=== PATIENT | female | born 1955 | race Native Hawaiian/Other Pacific Islander ===

== ENCOUNTER → 2016-08-31 | Outpatient (CLI) | payer OTHER | LOC: GMAB 17:05 | PROVIDERS: ATTEND Family Medicine | DX: Z00.00 Encounter for general adult medical examination without abnormal findings (principal); E53.8 Deficiency of other specified B group vitamins ==

== ENCOUNTER → 2017-04-25 | Outpatient (CLI) | payer OTHER | END | disposition home or self-care (01) | LOC: GMAB 17:58 | PROVIDERS: ATTEND Family Medicine | DX: R42 Dizziness and giddiness (principal); I10 Essential (primary) hypertension; D50.9 Iron deficiency anemia, unspecified; E53.8 Deficiency of other specified B group vitamins ==

== ENCOUNTER → 2017-05-04 | Outpatient (CLI) | payer OTHER | END | disposition home or self-care (01) | LOC: RESP 15:01 | PROVIDERS: ATTEND Family Medicine | DX: R42 Dizziness and giddiness (principal) ==

== ENCOUNTER 2017-06-30 11:33 | Inpatient (IN) | payer OTHER ==
--- NOTE | 2017-06-30 12:43 | RAD ---
EXAM DESCRIPTION: Abdomen 1 View CLINICAL HISTORY: g tube malfunction COMPARISON: None. IMPRESSION: Single AP supine view of the abdomen shows a nonspecific, nonobstructive bowel gas pattern. Moderate amount of formed fecal material in the lower pelvis suggest possible fecal impaction in the rectum. Gastric tube is seen overlying the left upper quadrant of the abdomen. Severe vascular calcifications are identified. Osseous structures are diffusely osteopenic. Electronically signed by: Mal Gaston MD 06/30/2017 12:42 PM [employer]
--- NOTE | 2017-06-30 12:45 | RAD ---
EXAM DESCRIPTION: Chest,1 View CLINICAL HISTORY: g tube malfunction COMPARISON: Chest x-ray June 16, 2017. FINDINGS: Single portable frontal view the thorax. Progressive obscuration of the left hemidiaphragm is present likely reflecting enlarging small to moderate sized pleural effusion with adjacent airspace disease/atelectasis. Visualized portions of the heart and mediastinum are maintained. Contralateral right lung is clear. No acute osseous pathology is demonstrated. Old healed rib fractures. IMPRESSION: Enlarging now small to moderate left-sided pleural effusion effusion with adjacent airspace disease. Electronically signed by: Maurice Chacko MD 06/30/2017 12:44 PM [facility]
--- NOTE | 2017-06-30 12:47 | ED.PDOC ---
History of Present Illness - General Chief Complaint: GI Problem Stated Complaint: g tube malfunction Time Seen by Provider: 06/30/17 12:21 Source: patient Exam Limitations: no limitations - History of Present Illness Initial Comments: Sharon Núñez 62 y/o female with CVA and left sided hemiparesis and g tube insertion complicated by liver puncture during insertion brought by ems because of pain g tube site since yesterday. Timing/Duration: 24 hours Severity: moderate Improving Factors: nothing Worsening Factors: nothing Associated Symptoms: other - heart burn Allergies/Adverse Reactions: Allergies Shellfish Allergy Allergy (Verified 06/30/17 12:03) Azithromycin Adverse Reaction (Intermediate, Verified 06/30/17 21:47) Nausea Levofloxacin [From Levaquin] Adverse Reaction (Verified 06/30/17 21:55) Home Medications: Ambulatory Orders Amlodipine Besylate 5 mg GT DAILY 06/30/17 Atorvastatin Calcium [Lipitor] 40 mg GT DAILY 06/30/17 Carvedilol [Coreg] 12.5 mg GT BID 06/30/17 Losartan Potassium 100 mg GT DAILY 06/30/17 Quetiapine Fumarate [Seroquel] 25 mg GT BID 06/30/17 Review of Systems - Review of Systems Constitutional: States: no symptoms reported EENTM: States: no symptoms reported Respiratory: States: no symptoms reported Cardiology: States: no symptoms reported Gastrointestinal/Abdominal: States: see HPI Genitourinary: States: no symptoms reported Musculoskeletal: States: no symptoms reported Skin: States: no symptoms reported Neurological: States: see HPI Past Medical History (General) - Patient Medical History Hx Stroke: Yes Hx Dementia: No Hx Cardiac Disorders: Yes Hx Hypertension: Yes Hx Diabetes: No Surgical History: other - g tube insertion - Social History Hx Physical Abuse: No Hx Emotional Abuse: No Hx Suspected Abuse: No - Activities of Daily Living Patient Lives Alone: No Shelter/Assisted Living (if applicable):: [facility] Grooming Ability: Maximum Assistance Eating (Feeding) Ability: Total Assistance Toileting Ability: Maximum Assistance Family Medical History - Family History Mother Family History: No Known Living Status: Still Living Hx Family Hypertension: Yes Physical Exam - Physical Exam General Appearance: Agitated, Comfortable, No apparent distress Eye Exam: bilateral normal Ears, Nose, Throat: hearing grossly normal, normal ENT inspection, normal pharynx Neck: full range of motion, supple, normal inspection Respiratory: chest non-tender, lungs clear, normal breath sounds Cardiovascular/Chest: normal peripheral pulses, regular rate, rhythm, no murmur Peripheral Pulses: radial,right: 2+, radial,left: 2+ Gastrointestinal/Abdominal: normal bowel sounds, non tender, soft, no organomegaly, other - flat g tube patent able to flush with normal saline w/o pain Extremity: no pedal edema, no calf tenderness Neurologic: alert, oriented x 3, motor weakness - left side Skin Exam: normal color, warm/dry Progress - Progress Progress: 06/30/17 12:51 Last Vital Signs Temp 100.1 F H 06/30/17 11:35 Pulse 102 H 06/30/17 11:35 Resp 20 06/30/17 11:35 BP 155/80 06/30/17 11:35 Pulse Ox 95 06/30/17 11:35 - Results/Orders Results/Orders: Laboratory Tests 06/30/17 06/30/17 06/30/17 14:42 14:42 14:42 WBC 15.5 H RBC 3.10 L Hgb 10.2 L Hct 29.6 L MCV 95.4 MCH 32.9 H MCHC 34.4 RDW 15.9 H Plt Count 444 H MPV 6.4 L Absolute Neuts (auto) 12.90 H Absolute Lymphs (auto) 1.60 Absolute Monos (auto) 0.90 H Absolute Eos (auto) 0.00 Absolute Basos (auto) 0.20 H Neutrophils % 83.1 H Lymphocytes % 10.0 L Monocytes % 5.6 Eosinophils % 0.3 L Basophils % 1.0 D-Dimer, Quantitative Sodium 127 L Potassium 3.6 Chloride 93 L Carbon Dioxide 25 Anion Gap 12.6 BUN 15 Creatinine 0.58 L BUN/Creatinine Ratio 25.9 H Random Glucose 128 H Serum Osmolality 257.7 L Lactic Acid Calcium 9.7 Total Bilirubin 0.4 AST 26 ALT 30 Alkaline Phosphatase 76 Troponin I < 0.02 Serum Total Protein 7.6 Albumin 3.0 L Globulin 4.6 H Albumin/Globulin Ratio 0.7 L Urine Color Urine Appearance Urine pH Ur Specific [place] Urine Protein Urine Glucose (UA) Urine Ketones Urine Blood Urine Nitrite Urine Bilirubin Urine Urobilinogen Ur Leukocyte Esterase Urine RBC Urine WBC Ur Epithelial Cells Urine Bacteria 06/30/17 06/30/17 06/30/17 15:24 15:25 15:42 WBC RBC Hgb Hct MCV MCH MCHC RDW Plt Count MPV Absolute Neuts (auto) Absolute Lymphs (auto) Absolute Monos (auto) Absolute Eos (auto) Absolute Basos (auto) Neutrophils % Lymphocytes % Monocytes % Eosinophils % Basophils % D-Dimer, Quantitative 552 H* Sodium Potassium Chloride Carbon Dioxide Anion Gap BUN Creatinine BUN/Creatinine Ratio Random Glucose Serum Osmolality Lactic Acid 1.0 Calcium Total Bilirubin AST ALT Alkaline Phosphatase Troponin I Serum Total Protein Albumin Globulin Albumin/Globulin Ratio Urine Color Yellow Urine Appearance Sl cloudy Urine pH 8.5 H Ur Specific [place] 1.010 Urine Protein Negative Urine Glucose (UA) Negative Urine Ketones Negative Urine Blood Trace-intact H Urine Nitrite Negative Urine Bilirubin Negative Urine Urobilinogen 0.2 Ur Leukocyte Esterase Trace H Urine RBC 0-1 Urine WBC 1-3 Ur Epithelial Cells 1-3 Urine Bacteria Rare - EKG/XRAY/CT EKG: Sinus, Tachy, nonspecific ST T wave Chg Comments: HR -107,LAD,LVH XRAY: chest - left pleural effusion with airspace disease CT Ordered: Yes - cta-no pulmonary embolus Departure - Departure Clinical Impression: Hyponatremia with decreased serum osmolality, CVA, old, hemiparesis, Pleural effusion Time of Disposition: 18:21 Disposition: Admit Patient Condition: Fair Home Medications: Ambulatory Orders Amlodipine Besylate 5 mg GT DAILY 06/30/17 Atorvastatin Calcium [Lipitor] 40 mg GT DAILY 06/30/17 Carvedilol [Coreg] 12.5 mg GT BID 06/30/17 Losartan Potassium 100 mg GT DAILY 06/30/17 Quetiapine Fumarate [Seroquel] 25 mg GT BID 06/30/17 Decision To Admit - Decistion To Admit Decision to Admit Reason: Admit from ER Decision to Admit Date: 06/30/17 - D/W Edvin Bush-ANP/Hospitalist Decision to Admit Time: 18:21
--- NOTE | 2017-06-30 13:44 | RAD ---
EXAM DESCRIPTION: KUB CLINICAL HISTORY: g tube malfunction COMPARISON: Same date IMPRESSION: Exam was performed following injection of Gastrografin contrast through the PEG tube. Single AP supine view of the abdomen shows contrast throughout the stomach with gastrostomy tube in good positioning. No extravasation is seen. Nonspecific bowel gas pattern. Possible fecal impaction in the rectum. Electronically signed by: Mal Gaston MD 06/30/2017 1:43 PM [facility]
[2017-06-30] MEDS ORDERED: ALUM & MAG HYDROX-SIMETHICONE 30 ML, LIDOCAINE VISCOUS 2% 15 ML PO ONE ×2 (14:14)
[2017-06-30] MEDS ORDERED: SUCRALFATE 1 GM/10 ML 1 GM UD PO ONE (14:14)
[2017-06-30] MEDS ORDERED: LIDOCAINE HCL 2% (MOUTH-THROAT) 15 ML UD ONE (14:18)
[2017-06-30] MEDS ORDERED: ALUM & MAG HYDROX-SIMETHICONE 30 ML UD ONE (14:18)
[2017-06-30] MEDS ORDERED: MINERAL OIL 133 ML BTTL PR ONE (16:39)
[2017-06-30] MEDS ORDERED: BISACODYL SUPPOSITORY 10 MG PR ONE (16:40)
--- NOTE | 2017-06-30 16:46 | CT ---
EXAM DESCRIPTION: CTA Chest CLINICAL HISTORY: elevated d dimer/bedbound chest pain, shortness of breath COMPARISON: None. TECHNIQUE: Postcontrast CT images of the chest are obtained using pulmonary embolism imaging protocol. Three-D MIP reconstructed images of the arterial vasculature are obtained. Coronal and sagittal reconstructed images of the also provided. This exam was performed according to our departmental dose-optimization program, which includes automated exposure control, adjustment of the mA and/or kV according to patient size and/or use of iterative reconstruction technique . FINDINGS: The heart is enlarged. Moderate calcifications of the coronary arteries are seen. Scattered calcified plaque of the thoracic aorta and great vessels is seen. There is breathing motion artifact limiting evaluation. There is likely mild to moderate stenosis of the proximal left common carotid and left subclavian arteries. No filling defects or emboli are seen in the pulmonary arteries. No pathologically enlarged mediastinal, hilar, or axillary lymphadenopathy seen. Small left pleural effusion is seen. Enhancing compressive atelectasis in the left lower lobe is seen. Trace right pleural effusion and right basilar atelectasis is noted. Lungs are normally aerated. Mild centrilobular emphysematous changes are seen. Fractures of the anterior left fifth through ninth ribs are seen with some evidence of healing. Multiple healed right-sided rib fractures. Fractures are difficult to evaluate because of patient breathing motion artifact. Visualized portion of the upper abdomen shows no acute findings. IMPRESSION: No radiographic evidence of pulmonary embolism. Small left and trace right pleural effusions are seen with left greater than right atelectasis of the lower lobes. Moderate to severe atherosclerotic disease. Electronically signed by: Mal Gaston MD 06/30/2017 4:44 PM [facility]
--- NOTE | 2017-06-30 19:39 | HP ---
SUPERVISING PHYSICIAN: Jarrett Thomas MD CHIEF COMPLAINT: G-Tube malfunction. HISTORY OF PRESENT ILLNESS: Ms. Cantu is a 62 year-old female patient with a history of a recent stroke, right side with left-sided hemiparesis and dysphagia from acute stroke in May 2017. She had a G-tube due to the dysphagia and concerns for aspiration approximately two weeks previously. The patient is followed in the clinic by Dr. Macdonald and was noted that apparently when the G-tube was placed, the liver was in some manner cut. The patient resides at [facility] and has been getting tube feeding and it was noted that over the last few days she has been having increasing pain associated with the feedings and at the G-tube site. She was initially send to the Emergency Room for evaluation of the pain at the G-tube site. In the Emergency Department, imaging studies included abdominal x-ray that showed nonspecific nonobstructive bowel gas pattern with a moderate amount of fecal material within the rectum, possibly a result of the fecal impaction. The gastric tube was seen overlying the left quadrant in the abdomen. This was followed up with a KUB to further evaluate the functionality of the G-tube. Injection of Gastrografin contrast through the G-tube was examined and per radiology interpretation the contrast was noted throughout the stomach with the gastrostomy tube in good position with no extravasation seen. Again, no nonspecific bowel gas pattern was seen with possible fecal impaction in the rectum. Laboratory studies showed she had a significant leukocytosis of 15,500 with a left shift and was anemic with a hemoglobin of 10.2 and hematocrit 29.6. Her D- dimer was also elevated at 552 and her chemistries indicated a hyponatremia with a sodium of 127. Liver functions all showed to be within normal limits. Creatinine was 0.58. Lactic acid was 1.0 and cardiac troponin was less than 0.02. Given the elevation of the D-dimer and the patient's inactivity levels due to the previous stroke, a CT of the chest was completed and per radiology interpretation there was no radiographic evidence of pulmonary embolism. There was noted a small left trace right pleural effusion with a left greater than right atelectasis of the lower lobes. A urinalysis showed just a trace of intact blood with trace leukoesterase with microscopic showing a rare bacteria and 1 to 3 WBCs with 1 to 3 epithelials on a straight cath specimen. The patient was seemed to be stable with vital signs showing a temperature of 100.1 , blood pressure 155/80 with a respiratory rate 20, saturation 95% on room air. Chest x-ray was also completed and again, there were no significant findings for consolidations but there was note of a left-sided pleural effusion with adjacent air space disease. Blood cultures were drawn and she was given mineral oil enema in efforts to relieve the fecal impaction in the Emergency Department. Dr. Murrell, Emergency Room physician, requested the patient be admitted for further evaluation and treatment given the degree of leukocytosis with a left shift and uncertainty etiology along with the hyponatremia. The patient is now admitted to the medical/surgical floor in stable condition. PAST MEDICAL HISTORY: 1. Recent CVA, right side with left-sided hemiparesis in May 2017. 2. Dysphagia requiring G-tube placement. 3. Longstanding history of excessive alcohol usage. 4. Chronic tobacco abuse. 5. Chronic obstructive pulmonary disease. 6. Hypertension. 7. Hyperlipidemia. PAST SURGICAL HISTORY: 1. Sebaceous cyst as a child. 2. Recent G-tube placement 2 weeks prior to admission. CURRENT MEDICATIONS: 1. Seroquel 25 mg b.i.d. 2. Losartan 100 mg daily. 3. Coreg 12.5 mg b.i.d. 4. Lipitor 40 mg daily. 5. Amlodipine 5 mg daily. ALLERGIES: SHELL FISH, AZITHROMYCIN, LEVOFLOXACIN FAMILY HISTORY: Father at age 58 due to atrial fibrillation complications. Mother at age 65 due to heart defect. 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 She is and lives at [facility]. She does have a recent history of excessive alcohol usage, drinking up to a 12-pack a day of beer. She was also a long- term smoker up to a pack a day, having recently quit since May. She denies any illicit drug use. REVIEW OF SYSTEMS: CONSTITUTIONAL: She has had a significant weight loss since her stroke and has left-sided weakness and generalized weakness. She has not noted any fevers but had a fever on arrival. HEENT: Denied any earaches, nasal congestion, sore throat, headaches. RESPIRATORY: Does note she has a cough that is somewhat productive but denies any significant shortness of breath or wheezing. HEART: No reported chest pains, palpitations or syncopal episodes. GASTROINTESTINAL: As noted in history of present illness, pain around the G- tube with administration of bolus feedings. GENITOURINARY: Denies any dysuria, hematuria, polyuria or other urinary symptoms. MUSCULOSKELETAL: Significant muscle wasting since stroke in May with a significant weight loss. NEUROLOGIC: History of previous right-sided stroke with left-sided hemiparesis and dysphagia. PHYSICAL EXAMINATION: VITAL SIGNS: Temperature 101.1 in the Emergency Room on admission with a pulse of 102, blood pressure 155/80, respirations 20, saturation 95% on room air. On admission to the medical/surgical floor, she showed a temperature of 97.8 with heart rate of 96, blood pressure 130/59, respirations 95% on room air. Admission weight was 46.3 kg. GENERAL: The patient us unkempt, somewhat disheveled but very pleasant, appears to be in no acute distress on admission to the medical/surgical floor and is alert and oriented x 3. HEENT: Tympanic membranes clear bilaterally. Oropharynx is pink, somewhat dry but no lesions noted. NECK: Supple with full range of motion, non-tender with no jugular venous distention noted. CHEST: Lung sounds were very clear but diminished towards the basis bilaterally. CARDIOVASCULAR: Regular rate and rhythm without appreciable murmurs, gallops, or rubs. ABDOMEN: Bowel sounds are present with a G-tube in place with no obvious areas of infection or drainage or inflammation. No pain on palpation. EXTREMITIES: There is no cyanosis, clubbing, or edema. NEUROLOGIC: She is alert and oriented x 3. Facial features showed an asymmetry with a left-sided droop which is residual from previous stroke. She has a left hemiparesis with left-sided weakness of both upper and lower extremity. Extraocular movements within normal limits. There was no notable nystagmus. All other cranial nerves were within normal limits as assessed except for facial drooping, dysphagia, noted above. LABORATORY: CBC showed a leukocytosis of 15,500 with hemoglobin of 10.2, hematocrit 29.6, platelet count 444,000. Differential does show a left shift. Coagulation studies only completed was a D-dimer which showed to be elevated at 552. Chemistries showed a low sodium of 127, normal potassium 3.6, BUN 15, creatinine 0.58, glucose 128, serum osmolality low at 257, lactic acid normal at 1.0, calcium normal at 9.7. Liver functions all within normal limits. Troponin less than 0.02, initially with a BMP of 128 and albumin low at 3.0. Urinalysis o a straight cath specimen showed trace of blood intact with a specific gravity of 1.010 with trace of leukoesterase and microcoric revealing rare bacteria with 1 to 3 epithelials, 1 to 3 WBCs and 0 to 1 RBCs. MICROBIOLOGY: Urine cultures pending, flu swab for influenza A and B by PCR was negative for both A and B. Blood cultures are pending. Strep screen pending. Sputum culture pending. RADIOLOGY: Initial abdominal x-ray in the Emergency Room per radiology interpretation showed a moderate amount of foreign fecal material within the lower pelvis suggesting a fecal impaction in the rectum and a gastric tube was seen overlying the left upper quadrant of the abdomen. This was followed up with a chest x-ray and a KUB. Chest x-ray per radiology interpretation of single view chest showed enlarging, now small to moderate, left-sided pleural effusion with adjacent air space disease. KUB per radiology interpretation showed nonspecific bowel gas pattern with possible fecal impaction in the rectum and a single view of the abdomen showed contrast throughout the stomach with a gastrostomy tube in good position with no extravasation seen. EKG showed a sinus tachycardia with nonspecific ST-wave changes but no ST elevation noted with no comparison available. ASSESSMENT: 1. Hyponatremia in a patient taking Seroquel and having free-water tube feedings with concerns for excessive free water and exacerbated by Seroquel. 2. Leukocytosis with low grade fever, uncertain etiology with cultures pending, sputum, urine. 3. Chronic obstructive pulmonary disease in a chronic smoker having recently quit with noted pleural effusions on CT with concerns for possible early developing pneumonia which would be considered hospital-acquired with no evidence currently of any consolidative processes on radiographic studies and sputum cultures pending. Also, cannot completely rule out an aspiration event given that she has a G-tube in place and a dysphagia. 4. Elevated D-dimer with negative CTA for pulmonary embolism, likely related to previous stroke in May and recent surgical process for G-tube placement with patient having no evidence of lower extremity pain or any evidence of a DVT. 5. 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 6. Severe constipation with a fecal impaction within the rectum. 7. Hyperchromic normocytic anemia likely of chronic illness and related to her previous alcohol abuse. 8. History of chronic tobacco abuse, recently stopped smoking in May. 9. History of alcohol abuse, having stopped drinking in May after stroke. PLAN: The patient will be admitted to the hospital fur further treatment and evaluation and treatment of the underlying hyponatremia and further investigation of the leukocytosis. Will also given the degree of the leukocytosis with uncertain etiology with concerns initially for a possible aspiration, tonight we will start with Rocephin 2 grams every 24 hours and reevaluate CBC in the morning along with a repeat chest x-ray. Will await culture results of the sputum and urine to further help target antibiotic therapy. She will be on DVT prophylaxis as per protocol. Will hold off on her tube feedings tonight and free water and await reassessment of her laboratory studies and further clarification of her regular tube feeding scheduled and nutritional supplements. Will go ahead and give her some milk of magnesia. She was given some stool softeners and an enema in the Emergency Room to assist with relieving the fecal impaction in the rectum. I will resume her home medications as noted from medical records and updated verified list with note to decrease the Seroquel to 25 mg daily. I did talk with Dr. Macdonald and he has requested that we taper off the Seroquel as she is no longer in need of this since she has been at [facility]. Again, the Seroquel could be the etiology of her hyponatremia. Will start her on some Protonix given the degree of discomfort with the tube feedings and reported heart burn. Will also follow her cardiac enzymes closely to further rule out any underlying cardiac issues or ischemic process. Will repeat laboratory studies in the morning with a CBC and BMP along with a chest x-ray. Will also go ahead and start her on some breathing treatments, Xopenex, given the degree of chronic obstructive pulmonary disease and previous history of smoking and the noted pleural effusion and atelectasis on the current CT and x-ray findings. Will encourage good pulmonary hygiene with incentive spirometry. Will anticipate length of stay to be at two to three days until clinically stable. Will continue to monitor and treat appropriately. #[id number] [facility]
[2017-06-30] MEDS ORDERED: ONDANSETRON INJ 4 MG/2 ML VIAL IV PRN (20:20)
[2017-06-30] MEDS ORDERED: SODIUM CHL 0.9% 50ML MIN-BAG+ 0 ML IVPB ONE (21:20)
[2017-06-30] MEDS ORDERED: SODIUM CHL 0.9% 100ML MINI-BAG 0 ML IVPB ONE (21:21)
[2017-06-30] MEDS ORDERED: PANTOPRAZOLE SODIUM IV 40 MG VIAL IV SCH (21:30)
[2017-06-30] MEDS: IV SET AND CAP CHANGE INJ INJ SCH (21:30)
[2017-06-30] MEDS ORDERED: cefTRIAXone SODIUM 2 GM in SODIUM CHL 0.9% 100ML MINI-BAG 100 ML IVPB SCH (21:30)
[2017-06-30] MEDS: SODIUM CHLORIDE 0.9% (FLUSH) 10 ML SYG IV PRN (21:31)
[2017-06-30] MEDS: KCL 20 MEQ/NS 1,000 ML IVS PRN (21:42)
[2017-06-30] MEDS ORDERED: levoFLOXacin 500MG IV 500 MG in PREMIX BAG 1 BAG IVPB SCH (22:00)
[2017-06-30] MEDS: CARVEDILOL 12.5 MG TAB GT SCH (22:11)
--- NOTE | 2017-06-30 23:07 | PCM.CORE ---
Physician DVT/VTE - Nurse DVT Assessment & Total Each Risk Factor Represents 5 Points: Stroke < 1 month Each Risk Factor Represents 2 Points: Age 60-74 Each Risk Factor Represents 1 Point: Medical PT at Bed Rest, Hx of smoking past year Each Risk Factor is 1 Point: Serious Lung disease (pnemonia <1month, COPD, emphysema,etc) DVT Assessment Score: 10 - 5 or more Very High Risk Treatments: Early Ambulation *, Sequential Compression Device Pharmacological: Enoxaparin 40mg SQ Daily
[2017-06-30] MEDS ORDERED: SODIUM CHL 0.9% 100ML MINI-BAG 100 ML IVPB ONE (23:19)
[2017-06-30] MEDS ORDERED: AMPICILLIN & SULBACTAM SODIUM 1.5 GM VIAL ONE (23:19)
[2017-06-30] MEDS ORDERED: SODIUM CHL 0.9% 50ML MIN-BAG+ 50 ML IVPB ONE (23:20)
[2017-06-30] MEDS ORDERED: ENOXAPARIN SODIUM 40 MG/0.4 ML SYG SUBCU SCH (23:30)
[2017-06-30] MEDS: AMPICILLIN & SULBACTAM SODIUM 1.5 GM in SODIUM CHL 0.9% 50ML MIN-BAG+ 50 ML IVPB SCH (23:36)
[2017-07-01] MEDS: LEVALBUTEROL NEBS 1.25 MG/3 ML VIAL NEB SCH ×3 (00:14→16:23)
[2017-07-01] MEDS: ACETAMINOPHEN 325 MG TAB PO PRN ×2 (04:02→23:56)
[2017-07-01] MEDS ORDERED: SODIUM CHL 0.9% 50ML MIN-BAG+ 50 ML IVPB ONE ×4 (05:27→19:34)
[2017-07-01] MEDS ORDERED: AMPICILLIN & SULBACTAM SODIUM 1.5 GM VIAL ONE ×4 (05:27→19:33)
[2017-07-01] MEDS: AMPICILLIN & SULBACTAM SODIUM 1.5 GM in SODIUM CHL 0.9% 50ML MIN-BAG+ 50 ML IVPB SCH ×4 (06:08→23:55)
--- NOTE | 2017-07-01 07:30 | RAD ---
Procedure: XR CHEST 1 VIEW Exam Date: 07/01/2017 Ordering Provider: Edvin Herndon NP Clinical Indication: leukocytosis Comparison: 06/30/2017 Findings: Cardiac mediastinal silhouette is stable. Aortic calcification. Focal lung consolidation: Left basilar atelectasis and/or infiltrate. Right basilar subsegmental atelectasis. Pleural effusion: Small left pleural effusion. Pneumothorax: None Bones and soft tissues: Nonacute Impression: 1. Left basilar atelectasis and/or infiltrate with small left pleural effusion. Electronically signed by: Bertrand Solis MD 07/01/2017 7:28 AM [facility]
[2017-07-01] MEDS ORDERED: ATORVASTATIN 20 MG TAB PO ONE ×2 (07:52→19:34)
[2017-07-01] MEDS ORDERED: amLODIPine BESYLATE 5 MG TAB ONE (07:54)
[2017-07-01] MEDS ORDERED: CARVEDILOL 12.5 MG TAB ONE (07:54)
[2017-07-01] MEDS ORDERED: LOSARTAN POTASSIUM 100 MG TAB ONE (07:54)
[2017-07-01] MEDS: amLODIPine BESYLATE 5 MG TAB GT SCH (09:15)
[2017-07-01] MEDS: QUEtiapine FUMARATE 25 MG TAB GT SCH (09:15)
[2017-07-01] MEDS: LOSARTAN POTASSIUM 100 MG TAB NG SCH (09:15)
[2017-07-01] MEDS: CARVEDILOL 12.5 MG TAB GT SCH ×2 (09:15→20:39)
[2017-07-01] MEDS: KCL 20 MEQ/NS 1,000 ML IVS PRN (12:57)
--- NOTE | 2017-07-01 17:53 | PN ---
DATE: 07/01/17 SUPERVISING PHYSICIAN: Jarrett Thomas M.D. SUBJECTIVE: Ms. Cantu is a 62 year-old white female. She is lying in bed awake, alert and oriented, conversational. Her speech is somewhat slurred but only minimally. She denies any shortness of breath, abdominal pain, chest pain , dizziness. She states that she can stand up with assistance and walk with assistance. She, however, cannot move her left arm. She denies any problems at this present time. She was admitted to the hospital yesterday from the Emergency Room for hyponatremia possibly secondary to her Seroquel and tube feedings with free water leukocytosis, chronic obstructive pulmonary disease. She is stable at this time and the nursing staff voice no complaints or problems either. She has not started back on her tube feedings at this time. OBJECTIVE: VITAL SIGNS: Temperature 98.2, pulse 64, blood pressure 124/72, respiratory rate 16, oxygen saturation 97% on room air. Intake and output: Intake 1300, output zero. Weight 46.44 kg. Ms. Cantu is a well-developed, well-nourished white female who appears her stated age. She appears to be in no acute distress, alert and oriented times three. NECK: Supple with full range of motion, non-tender. No jugular venous distention is noted. CHEST: No respiratory distress noted. Breath sounds are diminished bibasilarly with no rales, rhonchi or wheezing. Respiratory effort is even and unlabored. HEART: Sounds regular rate and rhythm. No murmurs, clicks or rubs. Bowel sounds are active in all four quadrants. G tube is placed and present with no obvious areas of infection or drainage or inflammation. No pain to palpation. No organomegaly or tenderness noted. EXTREMITIES: There is no cyanosis, clubbing or edema of the extremities. NEUROLOGIC: She is alert and oriented times three. Facial features are symmetric with a left sided droop. She has left hemiparesis with weakness of the upper and lower extremities, however she is able to move her toes. She is not able to move her fingers on the left side. Extraocular movements are intact and normal. There is no nystagmus. LABORATORY: White blood count 15.4, hemoglobin 8.5, hematocrit 25.2, platelet count 372. Metabolic panel: Sodium 131, potassium 3.6, chloride 98, CO2 is 23, BUN 15, creatinine 0.73, glucose 104, AST 17, ALT 21, alkaline phosphatase 63, albumin 2.5, serum potassium 2.5. Urine indicated no growth. Still awaiting sputum. RADIOLOGY: Chest x-ray radiology report as follows: Left bibasilar atelectasis and/or infiltrate with small left pleural effusion. ASSESSMENT: 1. Hyponatremia in a patient taking Seroquel and having free-water tube feedings with concerns for excessive free water and exacerbated by Seroquel. 2. Leukocytosis with low grade fever, uncertain etiology with cultures pending, sputum, urine. 3. Chronic obstructive pulmonary disease in a chronic smoker having recently quit with noted pleural effusions on CT with concerns for possible early developing pneumonia which would be considered hospital-acquired with no evidence currently of any consolidative processes on radiographic studies and sputum cultures pending. Also, cannot completely rule out an aspiration event given that she has a G-tube in place and a dysphagia. 4. Elevated D-dimer with negative CTA for pulmonary embolism, likely related to previous stroke in May and recent surgical process for G-tube placement with patient having no evidence of lower extremity pain or any evidence of a DVT. 5. 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 6. Severe constipation with a fecal impaction within the rectum. 7. Hyperchromic normocytic anemia likely of chronic illness and related to her previous alcohol abuse. 8. History of chronic tobacco abuse, recently stopped smoking in May. 9. History of alcohol abuse, having stopped drinking in May after stroke. PLAN: We will await results on sputum cultures given Ms. Cantu's persistent leukocytosis. We will continue with aggressive pulmonary hygiene. Anticipate hopefully getting a sputum specimen to identify any organisms and target antibiotic therapy accordingly. Her hyponatremia has improved significantly. Her tube feeding will be restarted. She is getting Jevity 1.5 calories. She will get 50 mL per hour 20 hours of the day and off 4 hours of the day. Her free water will be held at this present time. She will continue to receive the IV fluids until morning. We will probably discontinue this tomorrow if her hyponatremia has resolved. Until then, we will continue to monitor her and treat appropriately. Jarrett Thomas M.D. was consulted regarding the tube feeding and he concurred with the plan. [facility][id number] [facility]
[2017-07-01] MEDS ORDERED: ENOXAPARIN SODIUM 40 MG/0.4 ML SYG SUBCU ONE (19:34)
[2017-07-01] MEDS ORDERED: MAGNESIUM HYDROXIDE 30 ML UD ONE (19:34)
[2017-07-01] MEDS: ATORVASTATIN 20 MG TAB PO SCH (20:39)
[2017-07-01] MEDS: ENOXAPARIN SODIUM 40 MG/0.4 ML SYG SUBCU SCH (20:39)
[2017-07-01] MEDS: PANTOPRAZOLE SODIUM IV 40 MG VIAL IV SCH (20:49)
[2017-07-01] MEDS: SODIUM CHLORIDE 0.9% (FLUSH) 10 ML SYG IV PRN (20:50)
[2017-07-01] MEDS: MAGNESIUM HYDROXIDE 30 ML UD GT SCH (21:51)
[2017-07-02] MEDS: LEVALBUTEROL NEBS 1.25 MG/3 ML VIAL NEB SCH ×3 (00:34→16:16)
[2017-07-02] MEDS ORDERED: AMPICILLIN & SULBACTAM SODIUM 1.5 GM VIAL ONE ×2 (02:20→13:41)
[2017-07-02] MEDS ORDERED: SODIUM CHL 0.9% 50ML MIN-BAG+ 50 ML IVPB ONE ×2 (02:20→13:42)
[2017-07-02] MEDS: KCL 20 MEQ/NS 1,000 ML IVS PRN (02:30)
[2017-07-02] MEDS: AMPICILLIN & SULBACTAM SODIUM 1.5 GM in SODIUM CHL 0.9% 50ML MIN-BAG+ 50 ML IVPB SCH ×3 (06:06→14:25)
[2017-07-02] MEDS ORDERED: diphenhydrAMINE HCL 25 MG CAP ONE (09:30)
[2017-07-02] MEDS: QUEtiapine FUMARATE 25 MG TAB GT SCH (09:39)
[2017-07-02] MEDS: amLODIPine BESYLATE 5 MG TAB GT SCH (09:39)
[2017-07-02] MEDS: LOSARTAN POTASSIUM 100 MG TAB NG SCH (09:39)
[2017-07-02] MEDS: CARVEDILOL 12.5 MG TAB GT SCH ×2 (09:39→21:24)
[2017-07-02] MEDS ORDERED: diphenhydrAMINE HCL 25 MG CAP PO PRN (09:42)
[2017-07-02] MEDS ORDERED: SODIUM CHLORIDE 0.9% 1000ML 1,000 ML IVS PRN (14:44)
[2017-07-02] MEDS ORDERED: levoFLOXacin 500MG IV 500 MG in PREMIX BAG 1 BAG IVPB SCH (15:00)
[2017-07-02] MEDS ORDERED: levoFLOXacin 500MG IV 100 ML IVPB ONE (15:14)
[2017-07-02] MEDS ORDERED: SODIUM CHLORIDE 0.9% 100ML 100 ML IVPB ONE ×2 (15:15→20:24)
[2017-07-02] MEDS ORDERED: PIPERACILLIN/TAZOBACTAM 2.25 GM VIAL IVPB ONE ×2 (15:15→20:24)
--- NOTE | 2017-07-02 15:52 | PN ---
DATE: 07/02/17 SUPERVISING PHYSICIAN: Jarrett Thomas M.D. SUBJECTIVE: Ms. Cantu is a 62 year-old white female who appears her stated age. She is lying in bed awake, alert and oriented, and conversational. Her speech is somewhat slurred but only minimally. She denies any shortness of breath, abdominal pain, nausea, vomiting, chest pain, dizziness. She states that she has had some itching and postnasal drainage. She is able to stand with assistance and walk with assistance. She can, however, not move her left arm. She states that she is not having any problem at the current time. She was admitted to the hospital for hyponatremia probably secondary to her Seroquel and free water. She had leukocytosis and the x-ray indicated possibly an atelectasis or infiltrate in the lower lobes bilaterally. This could have been due to the tube feedings and water she was receiving in the correction. She may have had some aspiration and may have gotten an aspiration pneumonia secondary to the tube feedings. She was started back on her tube feedings yesterday only, no water. She was getting IV fluids, therefore the water was held. OBJECTIVE: VITAL SIGNS: Temperature 98.4, pulse 70, blood pressure 139/71, respiratory rate 20, oxygen saturation 96% on room air. Intake orally 2720. There were no outputs recorded. Her weight was 48.53 kg. No new labs were reviewed. Physical Examination as follows: Ms. Cantu is a 62 year-old white female who appears her stated age. She appears to be somewhat frail and mostly bedfast. She does not appear to be in any acute distress. She is alert and oriented times three. NECK: Supple with full range of motion and non-tender. No jugular venous distention is noted. CHEST: No respiratory distress noted. Breath sounds are diminished bibasilar with no rales, rhonchi or wheezing. Respiratory effort is even and unlabored. HEART: Sounds normal S1 and S2, regular rate and rhythm. No murmurs, clicks or rubs. ABDOMEN: Bowel sounds active in all 4 quadrants. Abdomen is soft, non-tender to palpation. The G tube is placed and present with no obvious infectious processes. No drainage or inflammation. She has no pain with palpation. No organomegaly or masses noted. EXTREMITIES: There is no cyanosis, clubbing or edema of the extremities. NEUROLOGIC: Alert and oriented times three. Facial features are symmetric with left sided droop. She has left hemiparesis with weakness of the left upper arm and left lower leg, however she is able to move her toes and her foot. She is unable to machine mover her fingers or her hand on the left side. Extraocular movements are intact and normal. There is no nystagmus. PSYCHIATRIC: Mood and affect are within normal limits. ASSESSMENT: 1. Hyponatremia in a patient taking Seroquel and having free-water tube feedings with concerns for excessive free water and exacerbated by Seroquel. 2. Leukocytosis with low grade fever, uncertain etiology with cultures pending, sputum, urine. 3. Chronic obstructive pulmonary disease in a chronic smoker having recently quit with noted pleural effusions on CT with concerns for possible early developing pneumonia which would be considered hospital-acquired with no evidence currently of any consolidative processes on radiographic studies and sputum cultures pending. Also, cannot completely rule out an aspiration event given that she has a G-tube in place and a dysphagia. 4. Elevated D-dimer with negative CTA for pulmonary embolism, likely related to previous stroke in May and recent surgical process for G-tube placement with patient having no evidence of lower extremity pain or any evidence of a DVT. 5. 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 6. Severe constipation with a fecal impaction within the rectum. 7. Hyperchromic normocytic anemia likely of chronic illness and related to her previous alcohol abuse. 8. History of chronic tobacco abuse, recently stopped smoking in May. 9. History of alcohol abuse, having stopped drinking in May after stroke. PLAN: Ms. Cantu, due to her persistent leukocytosis, will be changed to Zosyn and Levaquin IV. Her IV fluids will be decreased to KVO rate with the resolution of her hyponatremia. Her feeding tube was restarted yesterday and will continue with the Jevity 1.5 calories at approximately 50 mL per hour by gravity only, on 20 hours, off 4 hours per day. Her free water will be continue to be held. She will continue to receive the IV at a KVO rate to keep the vein open. She will continue to be monitored and treated appropriately, and hopefully discharge over the next few days. Jarrett Thomas M.D. was the collaborating physician. He was available by telephone. [facility][id number] [facility]
[2017-07-02] MEDS: PIPERACILLIN/TAZOBACTAM 4.5 GM in SODIUM CHLORIDE 0.9% 100ML 100 ML IVPB SCH ×2 (16:05→22:01)
[2017-07-02] MEDS: PANTOPRAZOLE SODIUM IV 40 MG VIAL IV SCH (21:23)
[2017-07-02] MEDS: ENOXAPARIN SODIUM 40 MG/0.4 ML SYG SUBCU SCH (21:24)
[2017-07-02] MEDS: ATORVASTATIN 20 MG TAB PO SCH (21:24)
[2017-07-02] MEDS ORDERED: AZITHROMYCIN IV 500 MG in SODIUM CHLORIDE 0.9% 250ML 250 ML IVPB SCH (21:30)
[2017-07-02] MEDS: MAGNESIUM HYDROXIDE 30 ML UD GT SCH (21:39)
[2017-07-02] MEDS: ACETAMINOPHEN 325 MG TAB PO PRN (23:10)
[2017-07-03] MEDS: LEVALBUTEROL NEBS 1.25 MG/3 ML VIAL NEB SCH ×4 (00:22→23:36)
[2017-07-03] MEDS ORDERED: PIPERACILLIN/TAZOBACTAM 2.25 GM VIAL IVPB ONE ×4 (03:54→21:21)
[2017-07-03] MEDS ORDERED: SODIUM CHLORIDE 0.9% 100ML 100 ML IVPB ONE ×4 (03:54→21:21)
[2017-07-03] MEDS: PIPERACILLIN/TAZOBACTAM 4.5 GM in SODIUM CHLORIDE 0.9% 100ML 100 ML IVPB SCH ×4 (04:07→22:20)
[2017-07-03] MEDS ORDERED: FLUCONAZOLE IV 100 ML IVPB ONE (09:08)
[2017-07-03] MEDS: FLUCONAZOLE IV 200 MG in PREMIX BAG 1 BAG IVPB SCH (09:14)
[2017-07-03] MEDS: CARVEDILOL 12.5 MG TAB GT SCH ×2 (09:39→20:41)
[2017-07-03] MEDS: amLODIPine BESYLATE 5 MG TAB GT SCH (09:39)
[2017-07-03] MEDS: LOSARTAN POTASSIUM 100 MG TAB NG SCH (09:39)
[2017-07-03] MEDS: ACETAMINOPHEN 325 MG TAB PO PRN ×3 (09:50→22:23)
[2017-07-03] MEDS: QUEtiapine FUMARATE 25 MG TAB GT SCH (09:50)
[2017-07-03] MEDS ORDERED: ALUMINUM & MAGNESIUM HYDROXIDE 30 ML UD PO PRN (17:53)
--- NOTE | 2017-07-03 20:04 | PN ---
DATE: 07/03/17 SUPERVISING PHYSICIAN: Thompson Layton M.D. SUBJECTIVE: The patient is lying in bed. She has no complaints of shortness of breath, chest pain, nausea, vomiting or diarrhea. She does complain that her buttocks hurts and her bottom is raw. She also says she does not want to go back to [facility] at this time and would [facility] some [facility] OBJECTIVE: VITAL SIGNS: Temperature 97.8, pulse rate 74, blood pressure 129/69 , respiratory rate 20, O2 sat is 99% on room air. RESPIRATORY: Essentially clear to auscultation bilaterally. CARDIAC: Regular rate and rhythm. ABDOMEN: Soft, nondistended, non-tender. Bowel sounds are positive. She has a G tube in place. EXTREMITIES: No cyanosis, clubbing or edema. NEUROLOGIC: She is awake, alert and oriented times three. She does have a slight left sided facial droop and has some mild left hemiparesis. SKIN: Her buttocks is reddened with some yeast-like rash noted and a few areas of sloughing skin noted to the coccyx area. LABORATORY: Preliminary blood cultures show no growth after 3 days. There are no other labs or films to report at this time. ASSESSMENT: 1. Hyponatremia in a patient taking Seroquel and having free-water tube feedings with concerns for excessive free water and exacerbated by Seroquel. 2. Leukocytosis with low grade fever, uncertain etiology with cultures pending, sputum, urine. 3. Left lower lobe pneumonia, presently on Zosyn. 4. Chronic obstructive pulmonary disease in a chronic smoker having recently quit with noted pleural effusions on CT with concerns for possible early developing pneumonia which would be considered hospital-acquired with no evidence currently of any consolidative processes on radiographic studies and sputum cultures pending. Also, cannot completely rule out an aspiration event given that she has a G-tube in place and a dysphagia. 5. 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 6. Severe constipation with a fecal impaction within the rectum. 7. Hyperchromic normocytic anemia likely of chronic illness and related to her previous alcohol abuse. 8. History of chronic tobacco abuse, recently stopped smoking in May. 9. History of alcohol abuse, having stopped drinking in May after stroke. 10. Candidal infection of the groin and buttocks, presently on Diflucan. 11. Elevated D-dimer with negative CTA for pulmonary embolism, likely related to previous stroke in May and recent surgical process for G-tube placement with patient having no evidence of lower extremity pain or any evidence of a DVT. PLAN: We will continue present supportive care. I have ordered some routine blood work for in the morning. Her Levaquin and Azithromycin have been cancelled due to her allergy. I have also put her on Diflucan due to the skin breakdown that looks like a yeast infection on her buttocks. She is presently on wound care and we will continue to do so. I have offered her a Castro catheter as I believe most of her skin breakdown is due to the yeast infection and her urinary incontinence. I have discontinued her IV fluids. I have also put her on fluid restrictions. We will need to clarify with [facility] about a possible swallow study. At this point, she is taking a few sips of water without any problems as she refuses to take her medications via G tube. If she is not going back to [facility], we will need to get followup at whatever new facility she will be discharged and get them to set up a swallow study for possible G tube removal. We will continue to monitor the patient closely and follow as needed. Dr. Layton is the collaborating physician available for consultation. #[id number] [facility]
[2017-07-03] MEDS: IV SET AND CAP CHANGE INJ INJ SCH (20:06)
[2017-07-03] MEDS: SODIUM CHLORIDE 0.9% (FLUSH) 10 ML SYG IV PRN (20:41)
[2017-07-03] MEDS: ENOXAPARIN SODIUM 40 MG/0.4 ML SYG SUBCU SCH (20:41)
[2017-07-03] MEDS: ATORVASTATIN 20 MG TAB PO SCH (20:41)
[2017-07-03] MEDS: PANTOPRAZOLE SODIUM IV 40 MG VIAL IV SCH (20:41)
[2017-07-03] MEDS: MAGNESIUM HYDROXIDE 30 ML UD GT SCH (20:42)
[2017-07-04] MEDS ORDERED: SODIUM CHLORIDE 0.9% 100ML 100 ML IVPB ONE ×4 (03:45→21:29)
[2017-07-04] MEDS ORDERED: PIPERACILLIN/TAZOBACTAM 2.25 GM VIAL IVPB ONE ×4 (03:45→21:29)
[2017-07-04] MEDS: PIPERACILLIN/TAZOBACTAM 4.5 GM in SODIUM CHLORIDE 0.9% 100ML 100 ML IVPB SCH ×4 (04:03→22:27)
[2017-07-04] MEDS: ACETAMINOPHEN 325 MG TAB PO PRN ×3 (04:21→19:00)
--- NOTE | 2017-07-04 07:23 | RAD ---
EXAM DESCRIPTION: Chest,1 View CLINICAL HISTORY: pna COMPARISON: July 01, 2017 FINDINGS: Accounting for leftward rotation and AP technique, the cardiomediastinal silhouette is unremarkable. Airspace consolidation is noted in the left lung base with a possible small moderate sized left-sided effusion. No right-sided airspace consolidation or right pleural fluid is identified. There is no pneumothorax or acute fracture. IMPRESSION: Left basilar pneumonia with a possible small to moderate-sized left-sided pleural effusion. Overall, findings do not appear significantly changed from July 01, 2017. Follow-up chest radiograph is recommended to document complete resolution and exclude the possibility of an underlying lung lesion. Electronically signed by: Kp Arreola MD 07/04/2017 7:22 AM [facility]
[2017-07-04] MEDS: LEVALBUTEROL NEBS 1.25 MG/3 ML VIAL NEB SCH ×3 (07:39→23:55)
[2017-07-04] MEDS ORDERED: FLUCONAZOLE IV 100 ML IVPB ONE (07:55)
[2017-07-04] MEDS: FLUCONAZOLE IV 200 MG in PREMIX BAG 1 BAG IVPB SCH (09:42)
[2017-07-04] MEDS: amLODIPine BESYLATE 5 MG TAB GT SCH (09:44)
[2017-07-04] MEDS: CARVEDILOL 12.5 MG TAB GT SCH ×2 (09:44→20:36)
[2017-07-04] MEDS: QUEtiapine FUMARATE 25 MG TAB GT SCH (09:44)
[2017-07-04] MEDS: SODIUM CHLORIDE 0.9% (FLUSH) 10 ML SYG IV SCH ×2 (09:45→20:36)
[2017-07-04] MEDS: LOSARTAN POTASSIUM 100 MG TAB NG SCH (09:49)
[2017-07-04] MEDS ORDERED: MAGNESIUM SULFATE PREMIX 2GM 2 GM in PREMIX BAG 1 BAG IVPB ONE (10:30)
[2017-07-04] MEDS ORDERED: KCL 40 MEQ/WATER FOR INJECTION 40 MEQ in PREMIX BAG 1 BAG IVPB ONE (10:35)
[2017-07-04] MEDS ORDERED: POTASSIUM CHLORIDE 10 MEQ TAB PO ONE (10:35)
[2017-07-04] MEDS ORDERED: MAGNESIUM SULFATE PREMIX 2GM 50 ML IVPB ONE (12:31)
[2017-07-04] MEDS ORDERED: KCL 40 MEQ/WATER FOR INJECTION 100 ML IVPB ONE (12:31)
[2017-07-04] MEDS ORDERED: POTASSIUM CHLORIDE ELIXIR 20 MEQ/15 ML UD ONE (12:31)
[2017-07-04] MEDS ORDERED: POTASSIUM CHLORIDE ELIXIR 20 MEQ/15 ML UD PO ONE (12:45)
[2017-07-04] MEDS ORDERED: SODIUM CHLORIDE 0.9% 500ML 500 ML IVS PRN (13:44)
[2017-07-04] MEDS: PANTOPRAZOLE SODIUM IV 40 MG VIAL IV SCH (20:36)
[2017-07-04] MEDS: ATORVASTATIN 20 MG TAB PO SCH (20:36)
[2017-07-04] MEDS: MAGNESIUM HYDROXIDE 30 ML UD GT SCH (20:37)
[2017-07-04] MEDS: ENOXAPARIN SODIUM 40 MG/0.4 ML SYG SUBCU SCH (20:37)
[2017-07-04] MEDS ORDERED: SODIUM CHLORIDE 0.9% 1000ML 1,000 ML IVS PRN (22:34)
[2017-07-04] MEDS: SODIUM CHLORIDE 0.9% (FLUSH) 10 ML SYG IV PRN (23:26)
[2017-07-05] MEDS ORDERED: SODIUM CHLORIDE 0.9% 100ML 100 ML IVPB ONE ×4 (04:02→22:31)
[2017-07-05] MEDS ORDERED: PIPERACILLIN/TAZOBACTAM 2.25 GM VIAL IVPB ONE ×4 (04:02→22:30)
[2017-07-05] MEDS: ACETAMINOPHEN 325 MG TAB PO PRN (04:21)
[2017-07-05] MEDS: PIPERACILLIN/TAZOBACTAM 4.5 GM in SODIUM CHLORIDE 0.9% 100ML 100 ML IVPB SCH ×4 (04:21→22:36)
--- NOTE | 2017-07-05 07:40 | RAD ---
EXAM DESCRIPTION: Chest,1 View CLINICAL HISTORY: 62 years Female, pna COMPARISON: July 04, 2017 TECHNIQUE: AP portable chest. FINDINGS: The right lung remains adequately aerated with slightly crowded basilar markings. Cardiomegaly and tortuous calcified aorta persist with vascularity in the upper normal range. The left lung base in the retrocardiac region remains opacified with obscured left hemidiaphragm. Basilar consolidation and/or pleural effusion is suspected. This is little changed from previous day's study. IMPRESSION: Very little change in the appearance of the chest. Persistent opacified left lung base likely a combination of pleural and parenchymal disease. Electronically signed by: Thompson Denise MD 07/05/2017 7:39 AM [employer]
--- NOTE | 2017-07-05 07:42 | RAD ---
EXAM DESCRIPTION: Abdomen Flat Upright CLINICAL HISTORY: 62 years Female, PEG tube placement and constipation COMPARISON: None. FINDINGS: Two views of the abdomen demonstrate a PEG tube located in the left upper quadrant with a normal bowel gas pattern. Moderate colonic air and moderate stool particularly in the rectal vault but to a lesser extent in the remainder of the colon suggests an element of mild constipation. Fecal impaction is not apparent. Extensive vascular calcification involving the iliac vessels is noted with moderate lumbar spine degenerative disease. The pattern of bowel obstruction or free abdominal air on the upright view is not apparent. IMPRESSION: Satisfactory appearance of the abdomen with left upper quadrant gastrostomy tube and moderate stool scattered throughout the colon. Electronically signed by: Thompson Denise MD 07/05/2017 7:41 AM TRAFFIC CONTROL TECHNICIAN
[2017-07-05] MEDS: LEVALBUTEROL NEBS 1.25 MG/3 ML VIAL NEB SCH ×2 (08:40→16:51)
[2017-07-05] MEDS: LOSARTAN POTASSIUM 100 MG TAB NG SCH (09:02)
[2017-07-05] MEDS ORDERED: FLUCONAZOLE IV 100 ML IVPB ONE (09:02)
[2017-07-05] MEDS: amLODIPine BESYLATE 5 MG TAB GT SCH (09:02)
[2017-07-05] MEDS: SODIUM CHLORIDE 0.9% (FLUSH) 10 ML SYG IV SCH ×2 (09:02→21:18)
[2017-07-05] MEDS: CARVEDILOL 12.5 MG TAB GT SCH ×2 (09:02→21:17)
[2017-07-05] MEDS: QUEtiapine FUMARATE 25 MG TAB GT SCH (09:02)
[2017-07-05] MEDS: FLUCONAZOLE IV 200 MG in PREMIX BAG 1 BAG IVPB SCH (09:03)
--- NOTE | 2017-07-05 09:15 | PN ---
SUPERVISING PHYSICIAN: Thompson Layton MD DATE: 07/04/17 SUBJECTIVE: The patient is sitting up in bed. She has no complaints of chest pain, nausea, vomiting, diarrhea or shortness of breath. Her buttocks still hurts when she is turned, but she feels like it has improved. We also discussed her discharge planning. She does not want to go back to [facility] and would like to go to a rehab facility or to [facility] for physical therapy, strengthening and conditioning. OBJECTIVE: VITAL SIGNS: Afebrile. Heart rate 74. Blood pressure 132/72. Respiratory rate 16. O2 saturation 98% on room air. LUNGS: Essentially clear to auscultation bilaterally. CARDIAC: Regular rate and rhythm. ABDOMEN: Soft, nondistended, nontender. Bowel sounds are positive. EXTREMITIES: No cyanosis, clubbing or edema. NEUROLOGIC: Awake, alert and oriented times three. SKIN: She continues to have breakdown on her buttocks, but it is slightly less reddened than yesterday. LABORATORY: WBCs have improved to 10.6 with a hemoglobin of 9.1, hematocrit 26.3. Her morning metabolic panel shows a sodium of 131 with potassium 2.8, chloride 99, BUN 12, creatinine 0.65, calcium 8.7, magnesium 1.4. Afternoon labs showed sodium 128, potassium 4.1, chloride 99, creatinine 0.58, serum osmolality 255, magnesium 2.0. Her final urine culture shows no growth after 48 hours. Her preliminary blood culture shows no growth after 4 days. Chest x- ray per radiologic interpretation shows left basilar pneumonia with possible small to moderate sized left pleural effusion. The findings do not appear significantly changed from 07/01/17. Followup chest radiograph is recommended to document complete resolution and to exclude the possibility of an underlying lung lesion. All other labs and films have been reviewed via the EMR. ASSESSMENT: 1. Hyponatremia in a patient taking Seroquel and having free-water tube feedings with concerns for excessive free water and exacerbated by Seroquel. 2. Leukocytosis, improved. Urine and blood cultures are negative. 3. Chronic obstructive pulmonary disease in a chronic smoker having recently quit with noted pleural effusions on CT with concerns for possible early developing pneumonia which would be considered hospital-acquired with no evidence currently of any consolidative processes on radiographic studies and sputum cultures pending. Also, cannot completely rule out an aspiration event given that she has a G-tube in place and a dysphagia. 4. Elevated D-dimer with negative CTA for pulmonary embolism, likely related to previous stroke in May and recent surgical process for G-tube placement with patient having no evidence of lower extremity pain or any evidence of a deep venous thrombosis. 5. 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 6. Severe constipation with a fecal impaction within the rectum. 7. Hyperchromic normocytic anemia likely of chronic illness and related to her previous alcohol abuse. 8. History of chronic tobacco abuse, recently stopped smoking in May. 9. History of alcohol abuse, having stopped drinking in May after stroke. 10. Candidal infection of the groin and buttocks, presently on Diflucan. PLAN: We will continue present supportive care. She will continue receiving her Zosyn and we will repeat labs and x-ray tomorrow. She will need a close followup on her x-ray after discharge. I also observed her taking her pills with small sips of water today and there was no obvious aspiration. She will continue her tube feedings through her G-tube and I have added normal saline back to her IV fluids. She is not getting any free water at this time because of her sodium. Her sodium has been low in the past and she may have some other underlying condition to cause the hyponatremia other than excessive alcohol intake or antipsychotics. I may call Dr. Tsang tomorrow and review her case with him and ask for his recommendations on her plan of care. I think she would benefit from a rehab facility so she can get an official swallow study there and hopefully get her G-tube discontinued. She will need to continue with physical therapy. We will continue to monitor the patient closely and follow as needed. Dr. Layton is the collaborating physician and available for consultation. #[id number] [facility]
[2017-07-05] MEDS ORDERED: MAGNESIUM SULFATE PREMIX 2GM 2 GM in PREMIX BAG 1 BAG IVPB ONE (11:46)
[2017-07-05] MEDS ORDERED: MAGNESIUM SULFATE PREMIX 2GM 50 ML IVPB ONE (11:57)
[2017-07-05] MEDS: DEX 5% W/NACL 0.9% 1000ML 1,000 ML IVS PRN (17:22)
--- NOTE | 2017-07-05 17:24 | CT ---
EXAM DESCRIPTION: Abdomen w/Contrast: CT CLINICAL HISTORY: abdominal pain/GT leaking? COMPARISON: CTA chest 06/30/2017. TECHNIQUE: Spiral-axial scans at 5.0 mm intervals through the abdomen after nondilated Gastrografin contrast was injected through gastric tube; and 100 mL nonionic IV contrast. Coronal and sagittal 2.0 mm Total exam DLP: 284.20 mGy-cm. This exam was performed according to our departmental dose-optimization program which includes automated exposure control, adjustment of the mA and/or kV according to patient size and/or use of iterative reconstruction technique; to reduce radiation dose to as low as reasonably achievable (ALARA). FINDINGS: Comments: The Gastrografin contrast can be seen in the tube and in the stomach. There appears to be a tract around the tube which also contains contrast, and the tube passes through the lateral segment of the liver. Tract is approximately 1.2 cm wide in the liver and maximum diameter is approximately 1.5 cm at the abdominal wall. In the left anterior abdominal wall abutting the tract, is a disc shaped soft tissue mass protruding more into the adipose tissue within the abdominal cavity. This tissue measures approximately 6.4 cm in width and approximately 6.5 cm craniocaudal. No edema in the adipose tissue between this mass and the skin. Fine detail of this mass is limited due to artifact from the contrast. No additional luminal contrast posterior to the left liver capsule. No contrast in the duodenum. Normal contrast enhancement in the remainder of the liver. Spleen and adrenal glands: Normal size and enhancement.. Pancreas/Gallbladder/Ducts: Gallbladder is slightly distended. Common bile duct is distended. Normal enhancement of the pancreas but artifact from the Gastrografin limits evaluation of the tail. Kidneys: Negative. Mesentery: Stranding around the left lobe of the liver and the left abdominal wall mass described above. Aorta: Moderate atherosclerotic calcification. Small Bowel: Included small bowel shows small air-fluid levels and minimal distention. Terminal Ileum/Cecum: Incompletely visualized. Colon: Air-fluid levels and minimal distention in the transverse colon splenic flexure and hepatic flexure and ascending colon. Air fluid interface with artifact.. Spine: Compression type fracture of L1 approximately 75% anteriorly and 50% centrally. 6 mm retropulsion of the superior endplate. Mild canal narrowing. Abdominal Wall/Back Soft Tissues: Soft tissue mass and edema as described above. Edema extends along the left abdominal and pelvic wall and into the subcutaneous tissues abutting the base of the left lung. Lung bases and pleura: Minimal right effusion and atelectasis in the right lower lobe. Moderate left pleural effusion with almost complete atelectasis of the left lower lobe. Partially displaced and healing fractures of the left lateral sixth seventh eighth and ninth ribs. IMPRESSION: 1. Gastric feeding tube tip is within the upper stomach, but passes through the lateral segment of the left hepatic lobe. A tract has formed around the tube from the stomach to the left anterior abdominal wall. An abscess may be forming in the left anterior abdominal wall around the tube and tract. No contrast extravasation posterior to the posterior capsule of the liver, or from the stomach. Recommend ultrasound evaluation of the tissue around the tract and tube and the anterior left abdominal wall soft tissue mass around the tube. 2. Distended gallbladder and common bile duct. Cannot exclude cholecystitis or cholelithiasis or common bile duct obstruction. Recommend follow-up ultrasound. 3. Approximately 75% compression type vertebral body fracture at L1 of unknown age with retropulsion narrowing the canal. 4. Soft tissue edema in the anterior and left lateral abdominal upper pelvic and lower thoracic adipose subcutaneous tissues. Electronically signed by: Mir Raman MD 07/05/2017 5:22 PM [employer]LECT[employer]
[2017-07-05] MEDS ORDERED: KCL 40 MEQ/WATER FOR INJECTION 40 MEQ in PREMIX BAG 1 BAG IVPB ONE (17:54)
[2017-07-05] MEDS ORDERED: KCL 40 MEQ/WATER FOR INJECTION 100 ML IVPB ONE (18:05)
[2017-07-05] MEDS ORDERED: metroNIDAZOLE IV PREMIX 500MG 100 ML IVPB ONE (18:08)
[2017-07-05] MEDS: metroNIDAZOLE IV PREMIX 500MG 500 MG in PREMIX BAG 1 BAG IVPB SCH (18:10)
--- NOTE | 2017-07-05 19:00 | PN ---
DATE: 07/05/17 SUPERVISING PHYSICIAN: Thompson Layton M.D. SUBJECTIVE: Last night around midnight the patient complained of abdominal pain around the PEG tube site. It was examined and tube feeding was stopped. This morning, she continued some mild complaints of abdominal pain and the area was much more erythematous. She denied any shortness of breath, nausea or vomiting or chest pain. She is more lethargic today than yesterday. OBJECTIVE: VITAL SIGNS: She is afebrile, heart rate 76, blood pressure 127/62, respiratory rate 18, O2 sat is 92% on room air. RESPIRATORY: Essentially clear to auscultation bilaterally in the apices. She is somewhat diminished at the bases. CARDIAC: Regular rate and rhythm. ABDOMEN: Soft, nondistended. It is slightly tender around the G tube insertion site. Bowel sounds are positive. There is erythema that is circumferential around the stoma of the G tube with some questionable drainage from the stoma itself. Could be tube feeding versus pus. NEUROLOGIC: She is slightly lethargic. She does awaken easily. She is oriented times three. LABORATORY: Sodium 129, potassium 3, chloride 98, carbon dioxide 20, magnesium 1.5. White count was 10.6 yesterday and it is 21 today with hemoglobin 9.3 and hematocrit 27.3. She does have 4 bands. Final urine culture shows no growth after 48 hours. Final blood culture showed no growth after 5 days. RADIOLOGY: Abdominal x-ray from this morning per radiology interpretation shows satisfactory appearance of the abdomen with left upper quadrant gastrostomy tube and moderate stool scattered throughout the colon. Her AM chest x-ray shows very little change in the appearance of the chest, persistent opacified left lung base likely a combination of pleural and parenchymal disease. CT of the abdomen today per radiology interpretation showed gastric feeding tube tip is within the upper stomach but passes through the lateral segment of the left hepatic lobe. A tract has formed around the tube from the stomach to the left anterior abdominal wall and abscess may be forming in the left anterior abdominal wall around the tube and tract though contrast extravasation posterior to the posterior capsule of the liver or from the stomach. Recommend ultrasound evaluation of the tissue around the tract and tube and the anterior left abdominal wall soft tissue mass around the tube. Distended gallbladder and common bile duct, cannot exclude cholecystitis or cholelithiasis or common bile duct obstruction. Recommend followup ultrasound. Approximately 70% compression type vertebral body fracture at L1 of unknown age with retropulsion narrowing the canal. Soft tissue edema in the anterior and left lateral abdominal upper pelvic and lower thoracic adipose subcutaneous tissues. All other labs and films have been reviewed via the EMR. ASSESSMENT: 1. Hyponatremia in a patient taking Seroquel and having free-water tube feedings with concerns for excessive free water and exacerbated by Seroquel. 2. Leukocytosis, improved. Urine and blood cultures are negative. 3. Chronic obstructive pulmonary disease in a chronic smoker having recently quit with noted pleural effusions on CT with concerns for possible early developing pneumonia which would be considered hospital-acquired with no evidence currently of any consolidative processes on radiographic studies and sputum cultures pending. Also, cannot completely rule out an aspiration event given that she has a G-tube in place and a dysphagia. 4. Possible abscess at the site of the PEG tube as seen per CT of the abdomen. 5. Possible cholecystitis or cholelithiasis. 6. A 75% compression type vertebral body fracture at L1 of unknown age per CT scan with retropulsion narrowing the canal. 7. Elevated D-dimer with negative CTA for pulmonary embolism, likely related to previous stroke in May and recent surgical process for G-tube placement with patient having no evidence of lower extremity pain or any evidence of a deep venous thrombosis. 8. 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 9. Severe constipation with a fecal impaction within the rectum. 10. Hyperchromic normocytic anemia likely of chronic illness and related to her previous alcohol abuse. 11. History of chronic tobacco abuse, recently stopped smoking in May. 12. History of alcohol abuse, having stopped drinking in May after stroke. 13. Candidal infection of the groin and buttocks, presently on Diflucan. PLAN: We will continue present supportive care. Her magnesium and potassium have been replaced and I will recheck her labs in the AM. Physical Therapy has been consulted for possible [facility] rehab on discharge. Dr. Willingham has been consulted in regards to the abscess around the PEG tube. I spoke with Dr. Raman, radiologist, and Dr. Willingham, general surgeon, and an ultrasound of the abdomen will be performed tomorrow to assess the abscess as well as the gallbladder. Her tube feedings have been stopped and she will be NPO except for medications. It is also to be noted that she has had no free water in 3 days and her sodium still remains somewhat low. Dr. Macdonald, her primary care physician, recommended that her surgeon that placed the PEG tube be contacted in regard to the PEG tube complications as the patient may need to followup with him. [facility] did come today for a review of the patient's chart and all appropriate documents have been sent to them. After her Acute Care issues have been resolved, it would be beneficial for her to go to a rehab facility on discharge. Otherwise we will continue to monitor the patient closely and follow as needed. Dr. Layton is the collaborating physician available for consultation. #[id number] DIANE
[2017-07-05] MEDS: PANTOPRAZOLE SODIUM IV 40 MG VIAL IV SCH (21:16)
[2017-07-05] MEDS: ENOXAPARIN SODIUM 40 MG/0.4 ML SYG SUBCU SCH (21:17)
[2017-07-05] MEDS: ATORVASTATIN 20 MG TAB PO SCH (21:17)
[2017-07-05] MEDS: MAGNESIUM HYDROXIDE 30 ML UD GT SCH (23:18)
[2017-07-06] MEDS: LEVALBUTEROL NEBS 1.25 MG/3 ML VIAL NEB SCH ×4 (00:30→23:56)
[2017-07-06] MEDS ORDERED: metroNIDAZOLE IV PREMIX 500MG 100 ML IVPB ONE ×4 (02:14→20:02)
[2017-07-06] MEDS: metroNIDAZOLE IV PREMIX 500MG 500 MG in PREMIX BAG 1 BAG IVPB SCH ×3 (02:14→18:45)
[2017-07-06] MEDS ORDERED: PIPERACILLIN/TAZOBACTAM 2.25 GM VIAL IVPB ONE ×4 (03:45→20:02)
[2017-07-06] MEDS ORDERED: SODIUM CHLORIDE 0.9% 100ML 100 ML IVPB ONE ×4 (03:45→20:02)
[2017-07-06] MEDS: PIPERACILLIN/TAZOBACTAM 4.5 GM in SODIUM CHLORIDE 0.9% 100ML 100 ML IVPB SCH ×4 (03:59→21:53)
[2017-07-06] MEDS: QUEtiapine FUMARATE 25 MG TAB GT SCH (08:55)
[2017-07-06] MEDS: amLODIPine BESYLATE 5 MG TAB GT SCH (08:55)
[2017-07-06] MEDS: CARVEDILOL 12.5 MG TAB GT SCH ×2 (08:57→21:25)
[2017-07-06] MEDS: LOSARTAN POTASSIUM 100 MG TAB NG SCH (08:57)
[2017-07-06] MEDS: FLUCONAZOLE IV 200 MG in PREMIX BAG 1 BAG IVPB SCH (09:00)
[2017-07-06] MEDS ORDERED: FLUCONAZOLE IVPB ONE (09:00)
[2017-07-06] MEDS: SODIUM CHLORIDE 0.9% (FLUSH) 10 ML SYG IV SCH ×2 (09:01→21:26)
--- NOTE | 2017-07-06 12:51 | US ---
EXAM DESCRIPTION: US Abdomen,Limited CLINICAL HISTORY: PEG tube abscess?/cholycystitis? COMPARISON: CT abdomen and pelvis dated July 05, 2017 TECHNIQUE: Real-time sonographic images of the right upper quadrant of the abdomen are obtained. FINDINGS: Visualized portion of the pancreas appears within normal limits.. The liver is at the upper limits of normal in size measuring 16.2 cm at the midclavicular line. Parenchymal echogenicity is within normal limits. No focal hepatic mass is seen. The gallbladder is normally distended. No cholelithiasis, gallbladder wall thickening, or pericholecystic fluid. The common bile duct is normal in caliber measuring 3.8 mm in diameter. Visualized right kidney appears unremarkable. No hydronephrosis. Some free fluid is seen in the area around the PEG tube, no loculation. Visualized IVC and abdominal aorta are within normal limits. IMPRESSION: 1. Upper limits of normal liver size measuring 16.2 cm. 2. Gallbladder appears unremarkable without evidence of cholelithiasis, wall thickening, or pericholecystic fluid. 3. Common bile duct is normal in caliber measuring 3.8 mm in diameter. 4. Free fluid seen in the area around the PEG tube. Electronically signed by: Severiano Snider MD 07/06/2017 12:50 PM PHYSICAL THERAPY PROFESSOR
[2017-07-06] MEDS ORDERED: MAGNESIUM SULFATE PREMIX 2GM 2 GM in PREMIX BAG 1 BAG IVPB ONE (13:30)
[2017-07-06] MEDS ORDERED: MAGNESIUM SULFATE PREMIX 2GM 50 ML IVPB ONE (13:53)
[2017-07-06] MEDS ORDERED: FLUCONAZOLE IV 100 ML IVPB ONE (16:16)
--- NOTE | 2017-07-06 18:03 | CONS ---
DATE OF CONSULTATION: 07/06/17 HISTORY OF PRESENT ILLNESS: The patient is a 62 year-old female who was admitted from [facility] almost a week ago with pain around her gastrostomy site. The patient had a cerebrovascular accident with left sided hemiparesis and dysphagia. In May, a G tube was placed in early May and there was some comment about an injury to the liver. The patient had developed pain with feeding and yesterday developed erythema around the G tube site and a small amount of drainage. CT scan of the abdomen was obtained which revealed no obvious abscess but it did appear that the PEG tube went through the left lobe of the liver. Also noted at that time was that the common bile duct was dilated and the gallbladder was. On admission, she had a white count of 15, 000. Yesterday, it was noted to be 20,000 but her liver functions were within normal limits. I have been asked to help evaluate and make recommendations for treatment for the G tube discomfort and the surrounding erythema. PAST MEDICAL HISTORY: 1. Alcohol abuse. 2. Chronic obstructive pulmonary disease. 3. Hypertension. 4. Hyperlipidemia. 5. Chronic tobacco use. CURRENT MEDICATIONS: 1. Seroquel. 2. Losartan. 3. Coreg. 4. Lipitor. 5. Amlodipine. ALLERGIES: LEVOFLOXACIN, AZITHROMYCIN AND SHELLFISH. FAMILY HISTORY: Positive for coronary artery disease on both sides. 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 The patient is a longterm smoker of over a pack a day until the stroke at which time she has no longer smoked. She used alcohol heavily prior to the stroke. REVIEW OF SYSTEMS: There has been weight loss since the stroke. No fever or chills. No significant cough, abdominal pain. She has had problems with constipation. PHYSICAL EXAMINATION: VITAL SIGNS: The patient was febrile at 101 on admission. She is now 98.8. Routine vital signs otherwise. GENERAL: The patient is awake, alert and cooperative. She has the weakness on her left side bit speaks well. HEENT: Sclera is nonicteric. Mucous membranes are moist. NECK: Without adenopathy. BACK: Without CVA tenderness. ABDOMEN: Soft, non-tender except in the area of the G tube with a small amount of erythema and some purulent drainage. There is no crepitance or fluctuance. PELVIC AND RECTAL: Examinations are deferred. RADIOLOGY: CT scan results were discussed earlier. She has had an ultrasound which revealed a normal gallbladder, normal common bile duct of the liver without abscess. LABORATORY: White blood cell count today is down to 12.9, hemoglobin 8.5, platelet count 380,000, 78% neutrophils. Liver function tests are all within normal limits. Blood sugars are good. Potassium 3, sodium 129, creatinine 0.77. IMPRESSION: 1. Cellulitis about a G tube which has been placed through the left lobe of the liver. RECOMMENDATIONS: Continue with the attempts to feed to reduce any need for the G tube and if that is successful, then my recommendation would be return the patient to the surgeon who placed the tube, otherwise refer to Gastroenterology for that removal. [facility][id number] [facility]
[2017-07-06] MEDS ORDERED: POTASSIUM CHLORIDE ELIXIR 20 MEQ/15 ML UD PO ONE (18:53)
[2017-07-06] MEDS: diphenhydrAMINE HCL 25 MG CAP GT PRN (19:03)
[2017-07-06] MEDS: ACETAMINOPHEN 325 MG TAB PO PRN (19:04)
[2017-07-06] MEDS: IV SET AND CAP CHANGE INJ INJ SCH (21:24)
[2017-07-06] MEDS: ATORVASTATIN 20 MG TAB PO SCH (21:25)
[2017-07-06] MEDS: ENOXAPARIN SODIUM 40 MG/0.4 ML SYG SUBCU SCH (21:25)
[2017-07-06] MEDS: MAGNESIUM HYDROXIDE 30 ML UD GT SCH ×2 (21:25→21:34)
[2017-07-06] MEDS: PANTOPRAZOLE SODIUM IV 40 MG VIAL IV SCH (21:26)
[2017-07-06] MEDS: DEX 5% W/NACL 0.9% 1000ML 1,000 ML IVS PRN (21:31)
[2017-07-07] MEDS: metroNIDAZOLE IV PREMIX 500MG 500 MG in PREMIX BAG 1 BAG IVPB SCH ×4 (02:31→17:43)
[2017-07-07] MEDS ORDERED: SODIUM CHLORIDE 0.9% 100ML 100 ML IVPB ONE ×4 (04:24→23:39)
[2017-07-07] MEDS ORDERED: PIPERACILLIN/TAZOBACTAM 2.25 GM VIAL IVPB ONE ×4 (04:24→23:39)
[2017-07-07] MEDS: PIPERACILLIN/TAZOBACTAM 4.5 GM in SODIUM CHLORIDE 0.9% 100ML 100 ML IVPB SCH ×4 (04:32→19:30)
[2017-07-07] MEDS ORDERED: FLUCONAZOLE IV 100 ML IVPB ONE (07:54)
[2017-07-07] MEDS ORDERED: metroNIDAZOLE IV PREMIX 500MG 100 ML IVPB ONE ×2 (07:54→17:13)
[2017-07-07] MEDS: FLUCONAZOLE IV 200 MG in PREMIX BAG 1 BAG IVPB SCH (08:30)
[2017-07-07] MEDS ORDERED: POTASSIUM CHLORIDE ELIXIR 20 MEQ/15 ML UD PO ONE (09:31)
[2017-07-07] MEDS: LEVALBUTEROL NEBS 1.25 MG/3 ML VIAL NEB SCH ×2 (09:43→16:31)
[2017-07-07] MEDS: LOSARTAN POTASSIUM 100 MG TAB NG SCH (09:45)
[2017-07-07] MEDS: amLODIPine BESYLATE 5 MG TAB GT SCH (09:47)
[2017-07-07] MEDS: CARVEDILOL 12.5 MG TAB GT SCH ×2 (09:47→20:52)
[2017-07-07] MEDS: QUEtiapine FUMARATE 25 MG TAB GT SCH (09:47)
--- NOTE | 2017-07-07 10:28 | PN ---
DATE: 07/06/17 SUPERVISING PHYSICIAN: Thompson Layton M.D. SUBJECTIVE: Patient notes that the pain around her G-tube is still present but not as extreme as it was yesterday. She still has some pain when she rolls to her left side. She remains afebrile. She was n.p.o. most of the night and has not had any nausea or vomiting and is tolerating initial tube feedings as they have been started back as well as oral liquids. OBJECTIVE: VITAL SIGNS: Temperature 98.8, pulse 63, blood pressure 130/61, respiratory rate 18, saturation 99% on room air. I&Os show she has 1260 in, output has not been well measured. Weight is at 47.9 kg. CHEST: Lungs remain clear to auscultation bilaterally, just diminished towards the bases. HEART: Regular rate and rhythm. ABDOMEN: Soft, nondistended, still remains some tenderness around the G-tube site with some notable clear drainage and some erythema but no obvious areas of consolidation. Stoma appears to be pink and healthy. NEUROLOGIC: She is much more alert today and oriented x3. LABORATORY: Studies show persistent hyponatremia with sodium of 129, potassium 3.0, BUN 7, creatinine 0.77, glucose 111, calcium 8.5. Liver function studies remain within normal limits. Albumin remains low at 3.1. CBC shows improvement in her leukocytosis with 12,900 white count compared to 21,000. Hemoglobin and hematocrit dropped some compared to previous day, hemoglobin down to 8.5 with hematocrit 23.7, platelet count remains within normal limits at 380,000. Differential continues to show a left shift. MICROBIOLOGY: Urine culture shows no growth at 48 hours. Blood cultures remain negative at 5 days. RADIOLOGY: Abdominal ultrasound this morning and per radiology interpretation and after visiting with Dr. Raman, there were no areas of consolidation for drainage, identified abscess, the liver was noted to be upper limits of 5 measuring 16.2 cm with the gallbladder appearing to be unremarkable with no cholelithiasis, wall thickening or pericholecystic fluid with the common bile duct measuring within normal limits at 3.8. There was note of some fluid seen in the area around the PEG tube. ASSESSMENT: 1. Persistent hyponatremia likely chronic with patient having a history of previously being on Seroquel with the dose being lowered and having some free-water tube feedings with concerns for excessive free water intake and exacerbated by Seroquel. 2. Leukocytosis showing improvement both with urine and blood cultures being negative. 3. Chronic obstructive pulmonary disease in a chronic smoker having recently quit with some pleural effusions noted on CT with no obvious areas of pneumonia. . 4. Cellulitis around the G-tube site with CT noting tube being placed through the liver with no obvious areas of loculation to indicate abscess formation. 5. Concerns for possible cholecystitis and cholelithiasis on CT but showing all within normal limits on ultrasound. 6. A 75% compression fracture of the vertebral disc at L1 of unknown age as noted on CT scan with retropulsion narrowing the canal. 7. Previous elevated D-dimer with negative CTA for pulmonary embolism felt to be likely related to previous stroke in May and recent surgical process for G-tube placement with no evidence of lower extremity pain or any evidence of a deep venous thrombosis. 8. History of recent right-sided cerebrovascular accident in May 2017 with a residual left-sided hemiparesis and dysphagia initially requiring placement of G-tube.with the patient tolerating some clear liquids with no signs of aspiration. 9. Hyperchromic normocytic anemia likely chronic and related to previous alcohol abuse. 10. History of chronic tobacco abuse, recently stopped in May. 11. History of alcohol abuse, having stopped in May after stroke. 12..Candidal infection of the groin and buttocks showing improvement with Diflucan. PLAN: We will continue with Zosybrandy and Flagyl as she is showing some improvement , especially in her white count. Dr. Willingham saw the patient and is following patient closely with recommendations as per his consultation. He did discuss concerns of the tube being placed through the liver and recommended that the patient followup with the surgeon that placed the tube initially. We will restart her tube feedings today and slowly work her back up to 50 cc per hour for 20 hours with close monitoring for any pain or discomfort. Will continue to hold free-roldan today and reevaluate her BNP in the morning. I have ordered wound care management around the PEG tube with Hibiclens solution at least 3 times a day. She has been accepted to [facility]. There are concerns from the family, especially the , of keeping the patient here until after the holidays. Dr. Macdonald has discussed this with the and will reevaluate in the morning again with possibly discharging with reassessing clinically. She will need to remain on antibiotics for at least an additional time frame to continue with treatment of the underlying concerning cellulitis around the PEG tube, hopefully being able to transition to p.o. medication prior to discharge as appropriate. Will anticipate discharge once she is clinically stable to continue with treatment rehabilitation at [facility] which has been arranged. Until the, we will continue to monitor and treat appropriately. #[id number] [facility]
[2017-07-07] MEDS ORDERED: MAGNESIUM SULFATE PREMIX 2GM 2 GM in PREMIX BAG 1 BAG IVPB ONE (10:40)
[2017-07-07] MEDS ORDERED: PIPERACILLIN/TAZOBACTAM 4.5 GM in SODIUM CHLORIDE 0.9% 100ML 100 ML IVPB SCH (11:00)
[2017-07-07] MEDS ORDERED: MAGNESIUM SULFATE PREMIX 2GM 50 ML IVPB ONE ×2 (11:49→11:53)
[2017-07-07] MEDS ORDERED: KCL 20MEQ/D5NS 1,000 ML IVS ONE ×2 (11:57→14:00)
[2017-07-07] MEDS ORDERED: POTASSIUM CHLORIDE 20mEq 10ML VIAL ONE (12:03)
[2017-07-07] MEDS ORDERED: ALUM & MAG HYDROX-SIMETHICONE 30 ML UD PO ONE (12:28)
[2017-07-07] MEDS: [UNRECOGNIZED DRUG - OTHER] IVS PRN (12:29)
[2017-07-07] MEDS: POTASSIUM CHLORIDE IVS PRN (12:29)
[2017-07-07] MEDS: KCL IVS PRN (12:29)
[2017-07-07] MEDS: ACETAMINOPHEN 325 MG TAB PO PRN ×2 (13:45→20:51)
[2017-07-07] MEDS: ATORVASTATIN 20 MG TAB PO SCH (20:52)
[2017-07-07] MEDS: ENOXAPARIN SODIUM 40 MG/0.4 ML SYG SUBCU SCH (20:52)
[2017-07-07] MEDS: MAGNESIUM HYDROXIDE 30 ML UD GT SCH (20:52)
[2017-07-07] MEDS: PANTOPRAZOLE SODIUM IV 40 MG VIAL IV SCH (21:11)
[2017-07-08] MEDS: LEVALBUTEROL NEBS 1.25 MG/3 ML VIAL NEB SCH ×2 (00:16→09:22)
[2017-07-08] MEDS: PIPERACILLIN/TAZOBACTAM 4.5 GM in SODIUM CHLORIDE 0.9% 100ML 100 ML IVPB SCH ×2 (00:42→05:35)
[2017-07-08] MEDS ORDERED: metroNIDAZOLE IV PREMIX 500MG 100 ML IVPB ONE ×2 (01:32→09:38)
[2017-07-08] MEDS ORDERED: KCL 20MEQ/D5NS 1,000 ML IVS ONE ×2 (01:32→02:00)
[2017-07-08] MEDS: KCL IVS PRN (01:44)
[2017-07-08] MEDS: [UNRECOGNIZED DRUG - OTHER] IVS PRN (01:44)
[2017-07-08] MEDS: POTASSIUM CHLORIDE IVS PRN (01:44)
[2017-07-08] MEDS ORDERED: POTASSIUM CHLORIDE 20mEq 10ML VIAL ONE (01:49)
[2017-07-08] MEDS: metroNIDAZOLE IV PREMIX 500MG 500 MG in PREMIX BAG 1 BAG IVPB SCH ×2 (01:58→10:25)
[2017-07-08] MEDS: diphenhydrAMINE HCL 25 MG CAP GT PRN (02:31)
[2017-07-08] MEDS: ACETAMINOPHEN 325 MG TAB PO PRN ×2 (03:01→09:46)
[2017-07-08] MEDS ORDERED: SODIUM CHLORIDE 0.9% 100ML 100 ML IVPB ONE (04:47)
[2017-07-08] MEDS ORDERED: PIPERACILLIN/TAZOBACTAM 2.25 GM VIAL IVPB ONE (04:47)
[2017-07-08] MEDS ORDERED: FLUCONAZOLE IV 100 ML IVPB ONE (07:52)
[2017-07-08] MEDS ORDERED: MAGNESIUM OXIDE 400 MG TAB PO SCH (09:00)
[2017-07-08] MEDS ORDERED: POTASSIUM CHLORIDE ELIXIR 20 MEQ/15 ML UD ONE (09:39)
[2017-07-08] MEDS: LOSARTAN POTASSIUM 100 MG TAB NG SCH (09:47)
[2017-07-08] MEDS: amLODIPine BESYLATE 5 MG TAB GT SCH (09:47)
[2017-07-08] MEDS: QUEtiapine FUMARATE 25 MG TAB GT SCH (09:47)
[2017-07-08] MEDS: CARVEDILOL 12.5 MG TAB GT SCH (09:47)
--- NOTE | 2017-07-08 09:52 | PN ---
DATE: 07/07/17 SUPERVISING PHYSICIAN: Thompson Layton M.D. SUBJECTIVE: The patient continues to show improvement. The area around her G- tube has improved in regards to the amount of cellulitis. The patient was able to tolerate clear liquids last night and was tolerating her tube feedings that were restarted yesterday. She does remain with persistent hyponatremia and low magnesium and potassium levels which we are continuing to replace. I did talk with [facility] and they are expecting the patient hopefully tomorrow and the family including the patient and are in agreement that tomorrow is a good time to transfer. The patient is medically cleared. She does remain afebrile. Her white count has improved. She is again tolerating some oral intake without any nausea or evidence of any choking or aspiration. OBJECTIVE: VITAL SIGNS: Temperature 98.0, pulse 77, blood pressure 128/66, respiratory rate 18, saturation 95% on room air. I&Os are not well measured as she has had multiple incontinent voids. She has had some issues with liquid stools, however , she has continued to be just on tube feedings and has not had any significant bulky oral intake. Weight is 47.0 kg. CHEST: Lungs are clear to auscultation bilaterally.. HEART: Regular rate and rhythm. ABDOMEN: Soft with some mild tenderness around the G-tube site continued but the G-tube area shows improvement and healing with lessened erythema. There is still some drainage but no obvious areas of loculation or abscess formation. EXTREMITIES: No cyanosis, clubbing, or edema.. NEUROLOGIC: She is alert and oriented x3 with no neurological deficits since admission. LABORATORY: White count no9w has normalized at 8,900. Hemoglobin and hematocrit are stable at 8.6 and 25.0. Platelet count at 419,000, differential today shows a resolving left shift. Chemistries show persistent hyponatremia but improved to 130. Potassium down to 2.3, carbon dioxide normal at 22, anion garrick 8.3 with BUN of 6, creatinine 0.74, glucose 121, calcium 8.4.. MICROBIOLOGY: Final urine culture result showed no growth at 48 hours. Blood cultures remain negative at 5 days. RADIOLOGY: There are no additional radiographic studies to review. ASSESSMENT: 1. Persistent hyponatremia felt to be chronic although patient is showing some improvement with oral intake and continued IV fluids. Etiology uncertain, possibly related to Seroquel and a previous history of having excessive free water tube feedings at the residential. 2. Persistent hypomagnesemia likely secondary to poor nutritional intake and normal renal loss requiring IV replacement. 3. Leukocytosis resolved with all cultures including blood and urine all negative. 4. Chronic obstructive pulmonary disease in a chronic smoker having recently quit with some pleural effusions on CT but no obvious areas of pneumonia and no evidence of exocervix. 5. Cellulitis around the G-tube site with CT noting that the tube being placed through the liver with no obvious areas of loculation to indicate abscess formation with placement of the tube initially in acute phase at [facility], unsure of physician's name but Dr. Macdonald, her primary care physician, is available for further assistance with followup with G-tube once the tube is able to be removed. 6. Concerns for possible cholecystitis as well as cholelithiasis on CT but showing no evidence of either and normal size of bile duct on ultrasound with no more pain to the right upper quadrant. 7. A 75% compression fracture of the vertebral disc at L1 of undetermined age as noted on CT scan with retropulsion narrowing in the canal. 8. Previous elevated D-dimer with negative CT for pulmonary embolism felt to be related to previous stroke in May and a recent surgical process for a G-tube placement with no evidence of lower extremity pain or any evidence of any further deep venous thrombosis. 9. History of recent right-sided cerebrovascular accident in 2017 with a residual left-sided hemiparesis and dysphagia requiring placement of a G-tube at [facility] with the patient tolerating some clear liquids and continued tube feedings with no signs of aspiration. 10. Hyperchromic normocytic anemia likely chronic and related to previous alcohol abuse. 12. History of chronic tobacco abuse having stopped in May. 13. History of alcohol abuse having stopped in May after stroke. 14..Candidal infection of the groin and buttocks showing improvement with Diflucan and able to transition to topical therapy. PLAN: I was able to talk with Dr. Canales at [facility]. The patient should be able to be transferred tomorrow if she continues to show good clinical improvement. She will need continuation of antibiotics but this could be transitioned to p.o. if she shows good improvement and no longer in need of more aggressive antibiotics to include Zosyn and Flagyl. She continues with wound care with Hibiclens around the G-tube site. Again, her tube feedings were restarted at 50 cc an hour with Jevity stopping it for four hours daily. We are currently not giving her any free water, only with oral intake. She remains in IV fluids tonight to assist with correcting the potassium and magnesium levels. We will plan to recheck her labs in the morning. Hopefully tomorrow the patient will be able to be discharged to [facility]. Arrangements have already been made and I have already provided a phone discussion. Again, once the patient is discharged she will need close clinical followup with primary care physician at some point, Dr. Macdonald, and also she will need to be seen back in followup with the physician that placed her PEG initially at [facility]. Information on this placement should be able to be secured through Dr. Macdonald's office. Again, it should be noted that the G-tube does go through a portion of the liver and again, this need to be readdressed with the physician who placed it but at this point, she appears to have no complications from this and certainly will need the tube removed as soon as she is able to transition to an oral . Until stable, hopefully discharge tomorrow, will continue to monitor and treat appropriately. #[id number] [facility]
[2017-07-08] MEDS ORDERED: POTASSIUM CHLORIDE ELIXIR 20 MEQ/15 ML UD PO ONE (10:00)
[2017-07-08] MEDS: FLUCONAZOLE IV 200 MG in PREMIX BAG 1 BAG IVPB SCH ×2 (10:58→11:11)
[2017-07-08] MEDS ORDERED: DOXYCYCLINE HYCLATE CAP 100 MG CAP PO SCH (11:30)
[2017-07-08] MEDS ORDERED: POTASSIUM CHLORIDE ELIXIR 20 MEQ/15 ML UD PO SCH (12:00)
[2017-07-08 14:32] VITALS: TEMP 97.1; O2SAT 96
[2017-07-08 14:42] VITALS: BP 152/70
[2017-07-09] MEDS ORDERED: POTASSIUM CHLORIDE ELIXIR 20 MEQ/15 ML UD PO SCH (07:30)
--- NOTE | 2017-07-20 10:07 | DS ---
SUPERVISING PHYSICIAN: Thompson Layton MD DISCHARGE DIAGNOSIS: 1. Persistent hyponatremia felt to be chronic with patient showing some improvement with oral intake and continued IV fluids. Etiology was uncertain but possibly related to Seroquel and her previous history of excessive free water feedings at the senior care. 2. Persistent hypomagnesemia likely secondary to poor nutritional intake and normal renal loss requiring IV replacement. 3. Leukocytosis resolved with all cultures including blood and urine all negative. 4. Chronic obstructive pulmonary disease in a chronic smoker having recently quit with some pleural effusions noted on CT but no obvious areas of pneumonia and no evidence of consolidations. 5. Cellulitis around the G-tube site with CT noting that the tube had been placed through the liver with no obvious areas of loculation to indicate abscess formation with placement of the tube initially in acute phase at [facility], physician's name unknown but Dr. Macdonald, her primary care physician, is available for assistance with followup with G-tube once the G-tube is able to be removed. 6. Concerns for possible cholecystitis as well as cholelithiasis on CT but showing no evidence of either and normal size of bile duct on ultrasound with no more pain to the right upper quadrant. 7. A 75% compression fracture of the vertebral disc at L1 of undetermined age as noted on CT scan with retropulsion narrowing in the canal. 8. Previous elevated D-dimer with negative CT for pulmonary embolism felt to be related to previous stroke in May and a recent surgical process for a G-tube placement with no evidence of lower extremity pain or any evidence of any further deep venous thrombosis. 9. History of recent right-sided cerebrovascular accident in 2016 with a residual left-sided hemiparesis and dysphagia requiring placement of a G-tube at [facility] with the patient tolerating some clear liquids and continued tube feedings with no signs of aspiration. 10. Hyperchromic normocytic anemia likely chronic and related to previous alcohol abuse. 12. History of chronic tobacco abuse having stopped in May. 13. History of alcohol abuse having stopped in May after stroke. 14..Candidal infection of the groin and buttocks showing improvement with Diflucan and able to transition to topical therapy. REASON FOR HOSPITALIZATION: Ms. Cantu is a 62 year-old female with a history of recent right-sided stoke with left-sided hemiparesis and dysphagia from acute stroke in May 2017. She had a G-tube placed due to the dysphagia and with concerns for aspiration approximately two weeks previous to admission. The patient is followed in the clinic by Dr. Macdonald and was noted that apparently when the G-tube was placed, it was placed through the distal lover of the lobe. The patient resides at [facility] and had been getting tube feedings and it was noted that over the last several days prior to admission she had been having increasing pain associated with the feedings and the G-tube site. She was initially sent to the Emergency Room for evaluation of the pain at the G-tube site. In the Emergency Department, imaging studies showed abdominal x-ray that showed nonspecific nonobstructive bowel gas pattern with a moderate amount of fecal material within the rectum, possibly resulting in fecal impaction. The gastric tube was seen overlying the left quadrant in the abdomen. This was followed up with a KUB to further evaluate the functionality of the G-tube. Injection of Gastrografin contrast through the G- tube was examined and per radiology interpretation the contrast was noted throughout the stomach with the gastrostomy tube in good position with no extravasation seen. Again, there was nonspecific bowel gas pattern with possible fecal impaction within the rectum. Laboratory studies showed she had a significant leukocytosis of 15,500 with a left shift and was anemic with a hemoglobin of 10.2 and hematocrit 29.6. Her D- dimer was also elevated at 552 and her chemistries indicated a hyponatremia with a sodium of 127. Liver functions showed to be within normal limits. Creatinine was 0.58 as well as lactic acid at 1.0 and cardiac troponin was less than 0.02. Given the elevation of the D-dimer and the patient's inactivity levels due to the previous stroke, a CT of the chest was completed and per radiology interpretation there was no radiographic evidence of pulmonary embolism. There was noted a small left trace pleural effusion with a left greater than right atelectasis of the lower lobes. A urinalysis showed a trace of intact blood with leukoesterase with microscopic showing a rare bacteria and 1 to 3 WBCs. The patient was fond to be stable with vital signs showing a temperature of 100.1, blood pressure 155/80 with a respiratory rate 20, saturation 95% on room air. Chest x-ray also completed prior to admission showed there were no significant findings for consolidations but there was note of a left-sided pleural effusion with adjacent air space disease. Blood cultures were drawn and she was given mineral oil enema in efforts to relieve the fecal impaction in the Emergency Department. Dr. Murrell, Emergency Room physician, requested the patient be admitted for further evaluation and treatment given the degree of leukocytosis and left shift and uncertainty etiology along with the hyponatremia. The patient was admitted in stable condition. LABORATORY STUDIES: She had multiple CBCs with initial CBC showing leukocytosis 15,500 up to a maximum of 21,000. After continuation of treatment and prior to discharge her leukocytes had normalized to 8,900, her hemoglobin stabilized at .8.6, hematocrit 25.0, platelet count 419.000. Differential was without a left shift. Coagulation studies again showed again D-dimer of 552. Chemistries initially on admission showed sodium 127, potassium 3.6, liver functions showed to be within normal limits. Initial serum osmolality was 257, creatinine 0.58 with BUN of 15. After treatment with fluids, Lasix and saline infusions prior to discharge her sodium was up to 133, calcium consistently low at 2.7. She was given multiple replacements. BUN was less than 5, creatinine 0.56, serum osmolality was up to 263. Magnesium had been normalized to 1.9, lowest of 1.4 on admission. Calcium remained within normal limits and at discharge was 8.5. Urinalysis on admission showed trace of blood with a trace of leukoesterase. Microscopic showed to be within normal limits. MICROBIOLOGY: Urine culture showed no growth at 48 hours. Influenza A and B swab by PCR showed negative for both A and B influenza. She had two sets of blood cultures that remained negative for 5 days. RADIOLOGY: She had multiple radiographic studies. Initially in the Emergency Room she had a KUB that showed a nonspecific bowel gas pattern and possible fecal impaction with gastrograph being injected through the PEG tube showing contrast within the PEG tube and throughout the stomach with the gastrostomy tube to be in good position with no extravasation seen. Initial chest x-ray per radiology interpretation showed a left basilar atelectasis and/or if not improved with small left pleural effusion. She had several more x-rays performed including a chest x-ray on 07/05 and per radiology interpretation showed very little change in appearance of the chest, persistent opacified left lung likely a combination of pleural fluid and parenchymal disease. She also had a CT of the chest to rule out pulmonary embolism participate and per radiology interpretation the heart size was found to be moderately enlarged. There were no filling defects or emboli seen. There is mention of left and trace right pleural effusions with the left being greater than the left atelectasis at both lobes. She had an abdominal CT on and per radiology interpretation with contrast there was again gastric feeding tube tip was within the upper stomach but it passed through a lateral segment of the left hepatic lobe. A tract was formed around the tube from the stomach to the left anterior abdominal wall. An abscess initially may be forming on left anterior abdominal wall around the tube and the tract but no contrast extravasation posterior to the posterior capsule of the liver or from the stomach. Of note was a distended gallbladder, bile duct and approximately a 75% compression type vertebral body fracture at L1 of unknown ate with a retropulsion narrowing the canal and there was mention of a soft tissue edema in the anterior and left lateral abdominal upper pelvic and lower thoracic adipose subcutaneous tissues. This was followed up with an abdominal ultrasound and per radiology interpretation the liver was at the upper limits of liver size measuring 16.2 with the gallbladder appearing to be unremarkable without any evidence of cholelithiasis, wall thickening or pericholecystic fluid. Common bile duct was noted to be normal caliber measuring 3.8 mm and there was free fluid seen within the abdomen around the PEG but no obvious areas of consolidation to indicate an abscess. HOSPITAL COURSE: Ms. Cantu was admitted as noted above for abdominal pain with concerns for an abscess in the abdominal wall and hyponatremia. She was treated with Lasix, IV fluids, antibiotics initially that included Rocephin, Levaquin, Unison, Zosyn and azithromycin along with Diflucan. She had electrolytes replaced including magnesium, potassium. She did show good response. Her tube feedings were resumed prior to discharge without any pain noted, no complications, no nausea or vomiting. She hemodynamically remained stable. On morning of discharge she was afebrile, temperature 97.1, blood pressure 132/70, respirations were 20, saturation 96% on room air with heart rate of 68. She also had a consultation with Dr. Willingham. Please see his consultation report for full details. She remained significantly deconditioned and it was felt that the patient would benefit from placement to a rehabilitation facility considering her previous stroke for ongoing rehabilitation in efforts to improve her outcomes. She was to have a swallowing study as well. She did have a bedside swallowing screen which was negative and was tolerating some oral intake, clear liquids only It was felt that she had progressed to the point to where she could be discharged to continue with outpatient treatment plans. PLAN: Ms. Cantu was discharged on 07/08/17 to be admitted to [facility]. All medications were continued as previous. Her antibiotic therapy was to include Doxycycline as she had completed a course of IV antibiotics and had shown good response and no obvious abscess formation. She was to have followup with Dr. Macdonald in regards to removing the G-tube at which point a decision needs to be made as far as endoscopic removal secondary to the placement through the liver with ultimately identifying the physician who placed the tube at [facility]. DIET: Tube feelings as previous to hospitalization with free water by mouth as tolerated until she was cleared by swallowing studies for a regular meal to be decided at [facility]. Again, all medications were continued as previous with the addition of Doxycycline. CONDITION AT DISCHARGE: Stable and improved. #[id number] [facility]
== END 2017-07-08 15:40 | DRG 640 ==
LOC: ER 11:33 → MS 19:38 → OBSVTOIN 19:38
PROVIDERS: ADMIT Nurse Practitioner Family; ATTEND Nurse Practitioner Family
PROC: B32TYZZ Computerized Tomography (CT Scan) of Left Pulmonary Artery using Other Contrast (ICD-10-PCS; principal; 2017-06-30)
PROC: B32SYZZ Computerized Tomography (CT Scan) of Right Pulmonary Artery using Other Contrast (ICD-10-PCS; 2017-06-30)
PROC: BW20YZZ Computerized Tomography (CT Scan) of Abdomen using Other Contrast (ICD-10-PCS; 2017-07-05)
DX: E87.1 Hypo-osmolality and hyponatremia (principal); J18.9 Pneumonia, unspecified organism; K94.22 Gastrostomy infection; J90 Pleural effusion, not elsewhere classified; I69.354 Hemiplegia and hemiparesis following cerebral infarction affecting left non-dominant side; L03.311 Cellulitis of abdominal wall; T43.595A Adverse effect of other antipsychotics and neuroleptics, initial encounter; J44.9 Chronic obstructive pulmonary disease, unspecified; R13.10 Dysphagia, unspecified; R79.89 Other specified abnormal findings of blood chemistry; I69.391 Dysphagia following cerebral infarction; K59.00 Constipation, unspecified; D63.8 Anemia in other chronic diseases classified elsewhere; D72.829 Elevated white blood cell count, unspecified; I10 Essential (primary) hypertension; E78.5 Hyperlipidemia, unspecified; Y92.129 Unspecified place in nursing home as the place of occurrence of the external cause; Z87.891 Personal history of nicotine dependence; Z79.899 Other long term (current) drug therapy; Z88.1 Allergy status to other antibiotic agents; Z91.013 Allergy to seafood; K94.29 Other complications of gastrostomy; Y65.8 Other specified misadventures during surgical and medical care; E87.6 Hypokalemia; E83.42 Hypomagnesemia; B37.2 Candidiasis of skin and nail

== ENCOUNTER → 2017-08-31 | Outpatient (CLI) | payer OTHER | LOC: GMAB 16:50 | PROVIDERS: ATTEND Family Medicine | DX: E53.8 Deficiency of other specified B group vitamins (principal); E61.2 Magnesium deficiency ==

== ENCOUNTER → 2017-09-26 | Outpatient (CLI) | payer OTHER | LOC: GMAB 16:43 | PROVIDERS: ATTEND Family Medicine | DX: E61.2 Magnesium deficiency (principal) ==

== ENCOUNTER 2017-11-15 15:28 | Emergency (ER) | payer OTHER ==
--- NOTE | 2017-11-15 16:36 | RAD ---
EXAM DESCRIPTION: Chest,1 View CLINICAL HISTORY: 62 years Female chest discomfort COMPARISON: 07/05/2017 FINDINGS: Mild cardiac enlargement. Lungs are hyperinflated compatible COPD with flattening of hemidiaphragms. The right lung appears clear. There is increased density in the left lung base and blunting the left costophrenic angle which appears improved as compared to the previous examination and may reflect residual or recurrent atelectasis and pleural fluid versus scarring. No evidence of central pulmonary vascular congestion or pulmonary edema. IMPRESSION: Cardiac enlargement Findings suggesting small pleural effusion on the left with underlying scarring or atelectasis. This appears improved as compared to the examination from June Electronically signed by: Sharon Queen MD 11/15/2017 4:35 PM CDT
[2017-11-15] MEDS ORDERED: TETANUS,DIPHTHERIA,PERTUSSIS 1 EA SYG IM ONE (17:06)
--- NOTE | 2017-11-15 17:46 | ED.PDOC ---
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 Occurred: this afternoon - 4 hours afo Injuries/Pain Location: chest Reason for Fall: other - see hpi Loss of Consciousness: no loss of consciousness Improving Factors: rest Worsening Factors: movement Associated Symptoms (Fall): other - see hpi Allergies/Adverse Reactions: Allergies Shellfish Allergy Allergy (Verified 11/15/17 15:54) Vomitting Azithromycin Adverse Reaction (Intermediate, Verified 11/15/17 15:54) Nausea Levofloxacin [From Levaquin] Adverse Reaction (Intermediate, Verified 11/15/17 15:54) Itching Home Medications: Ambulatory Orders Amlodipine Besylate 5 mg GT BID 06/30/17 Atorvastatin Calcium [Lipitor] 40 mg GT DAILY 06/30/17 Carvedilol [Coreg] 12.5 mg GT BID 06/30/17 Losartan Potassium 100 mg GT DAILY 06/30/17 Quetiapine Fumarate [Seroquel] 25 mg GT BID 06/30/17 Nystatin (Topical) [Nystatin] 100,000 unit TOP PRN PRN 07/01/17 Zinc Oxide Cream 1 applic TOP PRN PRN 07/01/17 Doxycycline Hyclate [Vibramycin] 100 mg PO BID cap 07/08/17 Magnesium Oxide [Magnesium] 500 mg PO TID #30 cap 07/08/17 Potassium Chloride Elixir [Kaochlor Liquid] 20 meq PO TIDFD ud 07/08/17 Review of Systems - Review of Systems Constitutional: States: no symptoms reported EENTM: States: no symptoms reported Respiratory: States: see HPI Cardiology: States: no symptoms reported Gastrointestinal/Abdominal: States: no symptoms reported Neurological: States: see HPI All other Systems: Reviewed and Negative, No Change from Baseline Past Medical History (General) - Patient Medical History Hx Seizures: No Hx Stroke: Yes - 05/2017 Hx Dementia: No Hx Asthma: No Hx of COPD: Yes Hx Cardiac Disorders: Yes - high cholesterol Hx Congestive Heart Failure: No Hx Pacemaker: No Hx Hypertension: Yes Hx Diabetes: No Hx MRSA: No Surgical History: other - g tube - Vaccination History Hx Influenza Vaccination: No Hx Pneumococcal Vaccination: No - Social History Hx Tobacco Use: Yes - 05/2017 Hx Alcohol Use: No Hx Substance Use: No Hx Physical Abuse: No Hx Emotional Abuse: No Hx Suspected Abuse: No - Activities of Daily Living Patient Lives Alone: No Home Health Agency (if applicable): [facility] Grooming Ability: Total Assistance Eating (Feeding) Ability: Total Assistance Toileting Ability: Total Assistance Physical Exam - Physical Exam General Appearance: Alert, Comfortable, No apparent distress Head Injury: no evidence of injury Eye Exam: bilateral normal ENT Exam: hearing grossly normal, no evidence of ENT injury, no dental injury Peripheral Pulses: radial,right: 2+, radial,left: 2+ Cardiovascular/Respiratory: regular rate, rhythm, no M/R/G, normal peripheral pulses, normal breath sounds, other - tenderness sternum Gastrointestinal/Abdominal: normal bowel sounds, non tender, soft, no organomegaly Back Exam: no CVA tenderness, no vertebral tenderness Extremity Exam: other - abrasion right forearm;contracture left upper extremity Neurologic: other - residual deficit with left hemiparesis and contracture deformities left elbow shoulder wris joints with clonus Skin Exam: normal color, warm/dry - Berta Coma Score Best Eye Response ([place]): (4) open spontaneously Best Verbal Response ([place]): (5) oriented Best Motor Response ([place]): (6) obeys commands Progress - Progress Progress: 11/15/17 18:13 Vital Signs - 8 hr 11/15/17 15:48 Temperature 97.9 F Pulse Rate [ 77 Right Radial] Respiratory 20 Rate Blood Pressure 193/95 [Left Arm] O2 Sat by Pulse 92 L Oximetry - Results/Orders Results/Orders: 11/15/17 16:15 EKG STAT Laboratory Results - last 24 hr 11/15/17 11/15/17 11/15/17 16:48 17:19 17:19 WBC 10.5 RBC 3.86 L Hgb 12.2 Hct 35.2 L MCV 91.2 MCH 31.6 H MCHC 34.6 RDW 15.1 H Plt Count 196 MPV 7.9 Absolute Neuts (auto) 8.60 H Absolute Lymphs (auto) 1.30 Absolute Monos (auto) 0.50 Absolute Eos (auto) 0.00 Absolute Basos (auto) 0.00 Neutrophils % 82.1 H Lymphocytes % 12.6 L Monocytes % 4.7 Eosinophils % 0.4 L Basophils % 0.2 Sodium 134 L Potassium 3.2 L Chloride 96 L Carbon Dioxide 27 Anion Gap 14.2 BUN 17 Creatinine 0.77 BUN/Creatinine Ratio 22.1 H Random Glucose 116 H Serum Osmolality 270.8 L Calcium 9.8 Magnesium 1.6 L Total Bilirubin 1.1 H AST 27 ALT 20 Alkaline Phosphatase 67 Serum Total Protein 7.9 Albumin 4.3 Globulin 3.6 H Albumin/Globulin Ratio 1.2 Urine Color Yellow Urine Appearance Clear Urine pH 7.0 Ur Specific [place] 1.015 Urine Protein 30 Urine Glucose (UA) 100 H Urine Ketones Negative Urine Blood Trace-lysed H Urine Nitrite Negative Urine Bilirubin Negative Urine Urobilinogen 0.2 Ur Leukocyte Esterase Negative Urine RBC 1-3 Urine WBC 0-1 Ur Epithelial Cells 0-1 Urine Bacteria 0 - EKG/XRAY/CT XRAY: chest - improvement of left pleural effusion Departure - Departure Clinical Impression: History of cerebrovascular accident (CVA) with residual deficit Fall at home Qualifiers: Encounter type: initial encounter Qualified Code(s): W19.XXXA - Unspecified fall, initial encounter; Y92.099 - Unspecified place in other non-institutional residence as the place of occurrence of the external cause Contusion, chest wall Qualifiers: Encounter type: initial encounter Laterality: unspecified laterality Qualified Code(s): S20.219A - Contusion of unspecified front wall of thorax, initial encounter Time of Disposition: 18:15 Disposition: Discharge to Home or Self Care Departure Forms: ED Discharge - Pt. Copy, Patient Portal Self Enrollment Referrals: Joaquin Macdonald MD [Primary Care Provider] - 1-2 Weeks Home Medications: Ambulatory Orders Amlodipine Besylate 5 mg GT BID 06/30/17 Atorvastatin Calcium [Lipitor] 40 mg GT DAILY 06/30/17 Carvedilol [Coreg] 12.5 mg GT BID 06/30/17 Losartan Potassium 100 mg GT DAILY 06/30/17 Quetiapine Fumarate [Seroquel] 25 mg GT BID 12/15/17 Nystatin (Topical) [Nystatin] 100,000 unit TOP PRN PRN 07/01/17 Zinc Oxide Cream 1 applic TOP PRN PRN 07/01/17 Doxycycline Hyclate [Vibramycin] 100 mg PO BID cap 07/08/17 Magnesium Oxide [Magnesium] 500 mg PO TID #30 cap 07/08/17 Potassium Chloride Elixir [Kaochlor Liquid] 20 meq PO TIDFD ud 07/08/17 Additional Instructions: Returrn to ER as needed;Continue with medications
--- NOTE | 2017-11-15 18:05 | CT ---
PROCEDURE: Chest w/o Contrast CLINICAL HISTORY: 62 years Female fall - r/o rib fractures; pt w/BUE contractures COMPARISON: 06/30/2017. TECHNIQUE: Contiguous axial images obtained through the chest without IV contrast. Reformatted images obtained. This exam was performed according to our department optimization program which includes automated exposure control, adjustment of the mA and/or kv according to patient size and/or use of iterative reconstruction technique. FINDINGS: There is extensive vascular calcification with calcification in aorta and the coronary vessels. No evidence of pericardial effusion. No significant hilar or mediastinal lymph nodes. Emphysematous changes are present. There is atelectasis in segments of the left lower lobe with elevation the left hemidiaphragm. No evidence of alveolar consolidation. There is moderate compression at L1 with mild anterolisthesis and reversal of the normal curvature at the T12-L1 level. Motion artifact limits the evaluation of rib fractures. There appear to be numerous old healed rib fractures on the right. There is no evidence of pleural fluid. The density seen on the chest x-ray corresponds with prominent epicardial fat in conjunction with atelectasis along the left lung base. Renal calculi. IMPRESSION: No evidence to suggest acute rib fracture Chronic appearing compression at L1 Emphysematous change Atelectasis in the left lung base with elevation of the hemidiaphragm and prominent epicardial fat which accounts for the density seen on chest x-ray Electronically signed by: Sharon Queen MD 11/15/2017 6:04 PM CDT
[2017-11-16 07:56] VITALS: O2SAT 92
[2017-11-16 07:57] VITALS: BP 169/75; TEMP 96.8
== END 2017-11-15 18:20 | disposition home or self-care (01) ==
LOC: ER 15:28
DX: S20.219A Contusion of unspecified front wall of thorax, initial encounter (principal); I69.954 Hemiplegia and hemiparesis following unspecified cerebrovascular disease affecting left non-dominant side; I69.998 Other sequelae following unspecified cerebrovascular disease; J44.9 Chronic obstructive pulmonary disease, unspecified; E78.00 Pure hypercholesterolemia, unspecified; I10 Essential (primary) hypertension; Z87.891 Personal history of nicotine dependence; Z79.899 Other long term (current) drug therapy; Z93.1 Gastrostomy status; W19.XXXA Unspecified fall, initial encounter; Y92.009 Unspecified place in unspecified non-institutional (private) residence as the place of occurrence of the external cause; Z23 Encounter for immunization

== ENCOUNTER 2018-01-29 09:15 | Emergency (ER) | payer OTHER ==
[2018-01-29] MEDS ORDERED: SODIUM CHLORIDE 0.9% (FLUSH) 10 ML SYG IV PRN (09:40)
--- NOTE | 2018-01-29 09:54 | CT ---
EXAM DESCRIPTION: Head: Computed Tomography. CLINICAL HISTORY: possible stroke COMPARISON: None. TECHNIQUE: Non-helical axial scans through the skull and brain, at 2.5 mm intervals, non-contrast. Sagittal and coronal 2.0 mm reconstructions. Total Exam DLP: 752.48 mGy-cm. This exam was performed according to our departmental dose-optimization program which includes automated exposure control, adjustment of the mA and/or kV according to patient size and/or use of iterative reconstruction technique; to reduce radiation dose to as low as reasonably achievable (ALARA). FINDINGS: No intra-axial hemorrhage, no mass-effect, and no midline shift. Encephalomalacia in the frontoparietal cortical kuar matter and subcortical white matter extending from the level of the superior right ventricular body, into the vertex. Bilateral symmetric low-density in the periventricular white matter. Focal dark density near the left thalamus. No extra-axial hemorrhage. Vascular calcifications anterior and posterior circulations; physiologic calcifications in the pineal gland and choroid plexus. No effacement or displacement of the ventricles, CSF spaces, or subdural spaces. Subdural spaces and cortical sulci are somewhat prominent for patient's age in the frontal and parietal lobes No extra axial fluid collection or hemorrhage. No gross abnormalities of the bony calvarium. Included paranasal sinuses and mastoid air cells are well - aerated. Right septal deviation. IMPRESSION: 1. No hemorrhage, no mass effect, no midline shift. Old CVA with encephalomalacia in the right frontoparietal region white matter extending into the cortical kaur matter. Adjacent tissue atrophy with no mass effect. Bilateral cerebral microvascular disease in the periventricular white matter. Small focal region of encephalomalacia lateral to the left thalamus. 2. CT scans are insensitive for detecting small CVAs in the first 24 hours after onset. Evaluation of the brain stem is also limited. If symptoms persist, consider NON-EMERGENT MRI scan of the brain with diffusion imaging. Electronically signed by: Mir Raman MD 01/29/2018 9:53 AM CDT
--- NOTE | 2018-01-29 11:05 | ED.PDOC ---
History of Present Illness - General Chief Complaint: Neuro Symptoms/Deficits Stated Complaint: possible stroke Time Seen by Provider: 01/29/18 09:17 Source: patient, family Exam Limitations: no limitations - History of Present Illness Initial Comments: PT BROUGHT TO THE ED BY FAMILY DUE TO ALTERED MENTAL STATUS. FAMILY STATES THAT PATIENT WAS WITNESSED HAVING SEIZURE LIKE ACTIVITY WHICH INCLUDED TONIC CLONIC MOVEMENTS OF THE UPPER BODY AND A BLANK STARE. FAMILY STATES THAT PATIENT HAD URINARY INCONTINENCE DURING THE EPISODE AND HAD A PERIOD OF CONFUSION AFTERWARD LASTING APPROXIMATELY 30 MINUTES. PT HAS NO COMPLAINTS AT THIS TIME AND DOES NOT RECOLLECT THE EVENT. Timing/Duration: resolved prior to arrival Severity: moderate Associated Symptoms: denies symptoms Allergies/Adverse Reactions: Allergies Shellfish Allergy Allergy (Verified 11/15/17 15:54) Vomitting Azithromycin Adverse Reaction (Intermediate, Verified 11/15/17 15:54) Nausea Levofloxacin [From Levaquin] Adverse Reaction (Intermediate, Verified 11/15/17 15:54) Itching Home Medications: Ambulatory Orders Amlodipine Besylate 5 mg GT BID 06/30/17 Atorvastatin Calcium [Lipitor] 40 mg GT DAILY 06/30/17 Carvedilol [Coreg] 12.5 mg GT BID 06/30/17 Losartan Potassium 100 mg GT DAILY 06/30/17 Quetiapine Fumarate [Seroquel] 25 mg GT BID 06/30/17 Nystatin (Topical) [Nystatin] 100,000 unit TOP PRN PRN 07/01/17 Zinc Oxide Cream 1 applic TOP PRN PRN 07/01/17 Doxycycline Hyclate [Vibramycin] 100 mg PO BID cap 07/08/17 Magnesium Oxide [Magnesium] 500 mg PO TID #30 cap 07/08/17 Potassium Chloride Elixir [Kaochlor Liquid] 20 meq PO TIDFD ud 07/08/17 Review of Systems - Review of Systems Constitutional: Denies: chills, fever EENTM: Denies: nose congestion, throat pain Respiratory: Denies: cough, short of breath Cardiology: Denies: chest pain, palpitations Gastrointestinal/Abdominal: Denies: diarrhea, nausea, vomiting Genitourinary: Denies: dysuria, frequency Musculoskeletal: Denies: joint pain, joint swelling Skin: Denies: dryness, lesions Neurological: States: see HPI, pre-existing deficit, seizure Endocrine: States: no symptoms reported Past Medical History (General) - Patient Medical History Hx Seizures: No Hx Stroke: Yes - 05/2017 Hx Dementia: No Hx Asthma: No Hx of COPD: Yes Hx Cardiac Disorders: Yes - high cholesterol Hx Congestive Heart Failure: No Hx Pacemaker: No Hx Hypertension: Yes Hx Diabetes: No Hx MRSA: No - Vaccination History Hx Influenza Vaccination: No Hx Pneumococcal Vaccination: No - Social History Hx Tobacco Use: Yes - 05/2017 Hx Alcohol Use: No Hx Substance Use: No Hx Physical Abuse: No Hx Emotional Abuse: No Hx Suspected Abuse: No Family Medical History - Family History Mother Family History: No Known Living Status: Still Living Hx Family Hypertension: Yes Physical Exam - Physical Exam General Appearance: Alert, Comfortable, No apparent distress, Well Developed, Well Groomed, Well Hydrated Eye Exam: bilateral normal Ears, Nose, Throat: hearing grossly normal Neck: supple, normal inspection Respiratory: lungs clear, normal breath sounds, other - SLIGHTLY TACHYPNEIC Cardiovascular/Chest: regular rate, rhythm, no edema, no murmur Gastrointestinal/Abdominal: non tender, soft Rectal Exam: other - STAGE DECUBITUS SKIN CHANGES TO THE BILATERAL BUTTOCKS, SMALL FLUCTUANT LESION NOTED TO THE PROXIMAL RIGHT BUTTOCK WITH SMALL AMOUNT OF BLOODY DRAINAGE. NO PURULENCE NOTED, MILDLY TTP Extremity: non-tender, normal inspection Neurologic: alert, normal mood/affect, oriented x 3, motor weakness - CONTRACTED LUE, HEMIPARESIS ON THE LEFT Skin Exam: normal color, warm/dry Progress - Progress Progress: 01/29/18 11:21 PT RESTING COMFORTABLY WITHOUT COMPLAINT. LABS AND DIAGNOSTICS DISCUSSED WITH PATIENT AND FAMILY. - EKG/XRAY/CT EKG: Sinus - @68BPM, NL INTERVALS, LAD, no ST T wave changes, Unchanged from - XRAY: chest - L PLEURAL EFFUSION PER RAD Departure - Departure Clinical Impression: Pleural effusion, History of cerebrovascular accident (CVA) with residual deficit, Observed seizure-like activity, Hypoxia, Leukocytosis Time of Disposition: 11:41 Disposition: Transfer to Hospital Condition: Fair Departure Forms: ED Discharge - Pt. Copy, Patient Portal Self Enrollment Referrals: FRED PINON MD [Primary Care Provider] - 1-2 Weeks Home Medications: Ambulatory Orders Amlodipine Besylate 5 mg GT BID 06/30/17 Atorvastatin Calcium [Lipitor] 40 mg GT DAILY 06/30/17 Carvedilol [Coreg] 12.5 mg GT BID 06/30/17 Losartan Potassium 100 mg GT DAILY 06/30/17 Quetiapine Fumarate [Seroquel] 25 mg GT BID 06/30/17 Nystatin (Topical) [Nystatin] 100,000 unit TOP PRN PRN 07/01/17 Zinc Oxide Cream 1 applic TOP PRN PRN 07/01/17 Doxycycline Hyclate [Vibramycin] 100 mg PO BID cap 07/08/17 Magnesium Oxide [Magnesium] 500 mg PO TID #30 cap 07/08/17 Potassium Chloride Elixir [Kaochlor Liquid] 20 meq PO TIDFD ud 07/08/17 Transfer to Outside Facility - Transfer Information Accepting Provider:: DR. BUSTILLOS Accepting Facility: [facility] Reason for Transfer: required specialist not available - NEUROLOGIST
--- NOTE | 2018-01-29 11:29 | RAD ---
EXAM DESCRIPTION: Chest,1 View CLINICAL HISTORY: 62 years Female, SOB COMPARISON: Previous study November 15, 2017 TECHNIQUE: AP portable chest. FINDINGS: Heart size is prominent with normal pulmonary vascularity. No consolidating infiltrate. No pulmonary mass or worrisome nodule. No pneumothorax or right pleural effusion. Small left pleural effusion is present. Bones are unremarkable. IMPRESSION: Prominent heart without congestive failure. Small left pleural effusion. Electronically signed by: Anjum Dela Cruz MD 01/29/2018 11:27 AM CDT
[2018-01-29] MEDS ORDERED: ALBUTEROL SULFATE 2.5 MG/3 ML VIAL NEB ONE (11:43)
[2018-01-29] MEDS: levoFLOXacin 750MG IV 750 MG in PREMIX BAG 1 BAG IVPB ONE ×2 (12:43→12:59)
[2018-01-29 12:58] VITALS: BP 145/63; TEMP 97.9; O2SAT 92
== END 2018-01-29 12:15 | disposition short-term general hospital (02) ==
LOC: ER 09:15
DX: J90 Pleural effusion, not elsewhere classified (principal); R09.02 Hypoxemia; D72.829 Elevated white blood cell count, unspecified; I69.90 Unspecified sequelae of unspecified cerebrovascular disease; R56.9 Unspecified convulsions; E78.00 Pure hypercholesterolemia, unspecified; I10 Essential (primary) hypertension; Z79.899 Other long term (current) drug therapy

== ENCOUNTER → 2018-04-11 | Outpatient (CLI) | payer OTHER | LOC: GMAE 16:58 | PROVIDERS: ATTEND Family Medicine | DX: R56.9 Unspecified convulsions (principal) ==

== ENCOUNTER 2018-09-24 01:24 | Observation (INO) | payer OTHER ==
[2018-09-24] MEDS ORDERED: cloNIDine HCL 0.1 MG TAB PO ONE (01:44)
[2018-09-24] MEDS ORDERED: ONDANSETRON ODT 8 MG TAB SL ONE (01:47)
--- NOTE | 2018-09-24 01:47 | ED.PDOC ---
History of Present Illness - General Chief Complaint: GI Problem Stated Complaint: N/V since 2144 Time Seen by Provider: 09/24/18 01:42 Source: patient, RN notes reviewed, Vital Signs reviewed Additional Information: 63 YEAR OLD WHITE FEMALE C/O NAUSEA VOMITING DIZZINESS LAST 1 WEEK AFTER STARTING ON DIVALPROX PT HAS HISTORY OF CVA SEIZURE DISORDER FOR 2 YEARS SHE ALSO HAS HYPERTENSION - History of Present Illness Timing/Duration: 1 week Severity: moderate Improving Factors: nothing Associated Symptoms: nausea/vomiting, weakness Allergies/Adverse Reactions: Allergies Shellfish Allergy Allergy (Verified 09/24/18 01:36) Vomitting Azithromycin Adverse Reaction (Intermediate, Verified 11/15/17 15:54) Nausea Levofloxacin [From Levaquin] Adverse Reaction (Intermediate, Verified 11/15/17 15:54) Itching Home Medications: Ambulatory Orders Amlodipine Besylate 5 mg GT BID 06/30/17 Atorvastatin Calcium [Lipitor] 40 mg PO DAILY 06/30/17 Carvedilol [Coreg] 12.5 mg GT BID 06/30/17 Losartan Potassium 100 mg GT DAILY 06/30/17 Quetiapine Fumarate [Seroquel] 25 mg GT BID 06/30/17 Nystatin (Topical) [Nystatin] 100,000 unit TOP PRN PRN 07/01/17 Zinc Oxide Cream 1 applic TOP PRN PRN 07/01/17 Magnesium Oxide [Magnesium] 500 mg PO TID #30 cap 07/08/17 Potassium Chloride Elixir [Kaochlor Liquid] 20 meq PO TIDFD ud 07/08/17 Divalproex Sodium [Divalproex Sodium Dr] 250 mg PO BID 09/24/18 Phenytoin Sodium Cap Extended [Dilantin Cap] 200 mg PO BEDTIME 09/24/18 Review of Systems - Review of Systems Constitutional: States: malaise, weakness EENTM: States: no symptoms reported Respiratory: States: no symptoms reported Cardiology: States: no symptoms reported Gastrointestinal/Abdominal: States: nausea, vomiting Genitourinary: States: no symptoms reported Musculoskeletal: States: no symptoms reported Skin: States: no symptoms reported Neurological: States: no symptoms reported Endocrine: States: no symptoms reported Hematologic/Lymphatic: States: no symptoms reported Past Medical History (General) - Patient Medical History Hx Seizures: No Hx Stroke: Yes - 05/2017 Hx Dementia: No Hx Asthma: No Hx of COPD: Yes Hx Cardiac Disorders: Yes - high cholesterol Hx Congestive Heart Failure: No Hx Pacemaker: No Hx Hypertension: Yes Hx Thyroid Disease: No Hx Diabetes: No Hx Gastroesophageal Reflux: No Hx Renal Disease: No Hx Cancer: No Hx of HIV: No Hx Hepatitis C: No Hx MRSA: No - Vaccination History Hx Influenza Vaccination: No Hx Pneumococcal Vaccination: No - Social History Hx Tobacco Use: Yes - 05/2017 Hx Alcohol Use: No Hx Substance Use: No Hx Physical Abuse: No Hx Emotional Abuse: No Hx Suspected Abuse: No Family Medical History - Family History Mother Family History: No Known Living Status: Still Living Hx Family Hypertension: Yes Physical Exam - Physical Exam General Appearance: Alert, Comfortable Eye Exam: bilateral normal Ears, Nose, Throat: hearing grossly normal, normal ENT inspection, normal pharynx Neck: non-tender, full range of motion, supple Respiratory: chest non-tender, lungs clear, normal breath sounds, no respiratory distress, no accessory muscle use Cardiovascular/Chest: normal peripheral pulses, regular rate, rhythm, no edema, no gallop Peripheral Pulses: radial,right: 2+, radial,left: 2+, femoral,right: 2+, femoral,left: 2+ Gastrointestinal/Abdominal: soft, no organomegaly, no pulsatile mass Back Exam: normal inspection, no CVA tenderness, no vertebral tenderness Extremity: normal range of motion, non-tender, normal inspection 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, alert, normal mood/affect, oriented x 3, other - LEFT HEMIPLEGIA Progress - Results/Orders Results/Orders: Laboratory Tests 09/24/18 09/24/18 09/24/18 01:53 01:53 01:53 WBC 5.3 RBC 3.34 L Hgb 11.5 L Hct 33.7 L MCV 100.9 H MCH 34.6 H MCHC 34.3 RDW 13.5 Plt Count 229 MPV 7.0 L Absolute Neuts (auto) 3.80 Absolute Lymphs (auto) 1.00 Absolute Monos (auto) 0.40 Absolute Eos (auto) 0.10 Absolute Basos (auto) 0.00 Neutrophils % 71.0 Lymphocytes % 18.8 L Monocytes % 7.0 Eosinophils % 2.6 Basophils % 0.6 Sodium 126 L Potassium 3.6 Chloride 88 L Carbon Dioxide 22 Anion Gap 19.6 H BUN 9 Creatinine 0.98 BUN/Creatinine Ratio 9.2 L Random Glucose 97 Serum Osmolality 252.0 L* Calcium 8.9 Total Bilirubin 0.5 AST 27 ALT 15 Alkaline Phosphatase 80 Serum Total Protein 7.6 Albumin 4.0 Globulin 3.6 H Albumin/Globulin Ratio 1.1 Phenytoin 4.6 L Free Phenytoin Cancelled Valproic Acid 20.8 L Departure - Departure Clinical Impression: Hyponatremia, Seizure as late effect of cerebrovascular accident (CVA), Hypertension, Valproic acid causing adverse effect in therapeutic use Time of Disposition: 03:47 Disposition: Admit Patient Condition: Fair Departure Forms: ED Discharge - Pt. Copy, Patient Portal Self Enrollment Referrals: FRED PINON MD [Primary Care Provider] - 1-2 Weeks Home Medications: Ambulatory Orders Amlodipine Besylate 5 mg GT BID 06/30/17 Atorvastatin Calcium [Lipitor] 40 mg PO DAILY 06/30/17 Carvedilol [Coreg] 12.5 mg GT BID 06/30/17 Losartan Potassium 100 mg GT DAILY 06/30/17 Quetiapine Fumarate [Seroquel] 25 mg GT BID 06/30/17 Nystatin (Topical) [Nystatin] 100,000 unit TOP PRN PRN 07/01/17 Zinc Oxide Cream 1 applic TOP PRN PRN 07/01/17 Magnesium Oxide [Magnesium] 500 mg PO TID #30 cap 07/08/17 Potassium Chloride Elixir [Kaochlor Liquid] 20 meq PO TIDFD ud 07/08/17 Divalproex Sodium [Divalproex Sodium Dr] 250 mg PO BID 09/24/18 Phenytoin Sodium Cap Extended [Dilantin Cap] 200 mg PO BEDTIME 09/24/18 Comments: ADMIT FOR OBS PLAN CORRECT SUBTHERAPEUTIC PHEYTOIN CORRECT HYPONATREMIA MEDICATION ADJUSTMENT AM WITH CONSULTATION WITH HER NEUROLOGIST DR [facility] TELEPHONE [phone] DISCUSSED WITH HOSPITALIST MR NU VELIZ
[2018-09-24] MEDS ORDERED: SODIUM CHLORIDE 0.9% 1000ML 1,000 ML IVS ONE (02:27)
[2018-09-24] MEDS ORDERED: MORPHINE SULFATE INJ 10 MG/ML VIAL IV ONE (02:27)
[2018-09-24] MEDS ORDERED: ACETAMINOPHEN 325 MG TAB PO ONE (02:32)
[2018-09-24] MEDS ORDERED: FOSPHENYTOIN PE IVPB ONE ×2 (03:46→04:07)
[2018-09-24] MEDS ORDERED: SODIUM CHLORIDE IVPB ONE ×2 (03:46→04:07)
[2018-09-24] MEDS ORDERED: FOSPHENYTOIN 100 PE/2 ML VIAL IVPB ONE (03:48)
[2018-09-24] MEDS ORDERED: SODIUM CHLORIDE 0.9% 100ML 100 ML IVPB ONE (03:49)
[2018-09-24] MEDS ORDERED: MORPHINE SULFATE INJ 10 MG/ML VIAL IV PRN (04:23)
[2018-09-24] MEDS ORDERED: SODIUM CHLORIDE 0.9% (FLUSH) 10 ML SYG IV PRN (04:23)
[2018-09-24] MEDS ORDERED: SODIUM CHLORIDE 0.9% 1000ML 1,000 ML IVS PRN (04:29)
[2018-09-24] MEDS ORDERED: IV SET AND CAP CHANGE INJ INJ SCH (04:30)
--- NOTE | 2018-09-24 04:34 | HP ---
SUPERVISING PHYSICIAN: Thompson Layton MD CHIEF COMPLAINT: Nausea and vomiting. HISTORY OF PRESENT ILLNESS: Ms. Cantu is a 63-year-old female patient who presented to the Emergency Room early this morning due to some dizziness and vomiting that started on of the previous week. She has a history of seizures after a cerebrovascular accident in 2016 and has been on Dilantin 200 mg ER daily. Her least seizure activity was recorded 3 weeks previously. Her neurologist in the last several weeks had decreased her Dilantin to 100 mg daily resulting in new onset of seizures. She was seen in [place] and treated for seizures at which time she was started on Vimpat and her Dilantin was increased to 200 mg ER daily. Apparently she could not tolerate the Vimpat and was seen in followup by Dr. Villela on 09/17/18. The Vimpat was stopped and she was referred to neurologist, Dr. Mcintosh in [place]. Dr. Mcintosh started her this past on Depakote. Shortly after starting the Depakote, she started having severe nausea and vomiting which persisted over the weekend. She reports that within 2 hours of taking the Depakote, she became very nauseated followed by several episodes emesis. Her brought her to the Emergency Room this morning. On laboratory workup, the patient was found to be hyponatremic with sodium 126 mg/dl. Her toxicology screen showed subtherapeutic levels of Dilantin at 4.6 as well as valproic acid at 20.8. Given her past history of seizures and intolerance to Depakote, she was given 500 mg loading dose of Cerebyx. She was also started on normal saline to treat her hyponatremia. She was hypertensive on initial assessment in the Emergency Room with blood pressure 108/89 and treated with clonidine. She is going to be placed in observation for continuation of treatment for hyponatremia and close neurological monitoring and to allow for adjustment of her medications to include Depakote. She was placed in observation in stable condition. PAST MEDICAL HISTORY: 1. Cerebrovascular accident in May of 2017. 2. Previous history of excessive alcohol use, stopped in 2017 3. Chronic tobacco abuse, stopped in 2017. 4. Chronic obstructive pulmonary disease. 5. Hypertension. 6. Hyperlipidemia. PAST SURGICAL HISTORY: 1. Sebaceous cyst removal as a child. 2. Nose surgery. CURRENT MEDICATIONS: 1. Coreg 12.5 mg b.i.d. 2. Fludrocortisone acetate 0.1 mg 2 tablets daily. 3. Potassium chloride 20 mEq twice daily. 4. Atorvastatin 10 mg daily. 5. Lomotil as needed. 6. Dilantin 100 mg extended release twice daily. 7. Aspirin 81 mg. 8. Acetaminophen 500 mg 1 tablet q.4h. as needed. 9. Magnesium oxide 400 mg 1 daily. 10. Simethicone t.i.d. as needed. 11. Divalproex 250 mg b.i.d. ALLERGIES: SHELLFISH, AZITHROMYCIN, LEVAQUIN. FAMILY HISTORY: Father at age 58, complications from atrial fibrillation. Mother at age 64 due to heart defect. 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 She is . She lives in [facility]. She does have a history of excessive alcohol usage and smoking, but quit in 2018. She denies any illicit drug use. REVIEW OF SYSTEMS: CONSTITUTIONAL: Positive for general malaise and weakness. No reported unintentional weight loss. HEENT: Negative for sore throats, earaches, nasal congestion, vision changes. RESPIRATORY: Negative for shortness of breath, wheezing or coughing. CARDIOVASCULAR: Negative for chest pain, palpitations, tachycardia or syncopal episodes. GASTROINTESTINAL: Positive for nausea and vomiting. Denies diarrhea, constipation or abdominal pain. SKIN: Skin tears to bilateral buttocks. GENITOURINARY: Negative for dysuria, hematuria, polyuria. NEUROLOGIC: Positive for left hemiplegia secondary to stroke in May of 2017. PHYSICAL EXAMINATION: VITAL SIGNS: Temperature 96.4. Pulse 71. Blood pressure initially 208/89. Respiratory rate 16. Oxygen saturation 97% on room air. After clonidine, blood pressure was 163/88 prior to admitting to the Floor. Admission weight 47.8 kg. GENERAL: The patient is alert, comfortable, appears to be in no acute distress. HEENT: Tympanic membranes clear bilaterally. Oropharynx is pink. Mucous membranes slightly dry. No lesions. NECK: Supple, nontender with full range of motion. RESPIRATORY: Lungs clear to auscultation bilaterally without any rhonchi, wheezes, or rales. CARDIOVASCULAR: Regular rate and rhythm without any appreciable murmurs, gallops, or rubs. ABDOMEN: Soft, nontender. Positive bowel sounds. BACK: Without any CVA tenderness or vertebral tenderness. Atraumatic. EXTREMITIES: There is no cyanosis, clubbing or edema. Moves all extremities ad catarina. NEUROLOGIC: The patient is oriented with left hemiplegia. Cranial nerves II-XII are grossly intact. SKIN: Skin tears to bilateral buttocks. No other lesions or rashes noted. Skin was pink, warm and dry. LABORATORY: White count 5,300, hemoglobin 11.5, hematocrit 33.7, platelet count 229,000, differential without a left shift. RBC indices indicated a macrocytosis. Chemistries showed sodium 126, potassium 3.6, anion gap slightly elevated at 19.6, BUN 9, creatinine 0.98, glucose 97, serum osmolality 252, calcium 8.9. Liver functions within normal limits. Toxicology showed Dilantin level 4.6, valproic acid 20.8. ASSESSMENT: 1. Nausea and vomiting secondary to valproic acid. 2. Acute on chronic hyponatremia secondary Seroquel and recent nausea and vomiting. 3. Hypertensive urgency. 4. History of seizures status post cerebrovascular accident in 2017. 5. Chronic obstructive pulmonary disease in a chronic smoker without any signs of exacerbation. 6. Hyperchromic/macrocytic anemia, likely due to medications and chronic illness, requiring further workup as an outpatient. 7. Subtherapeutic Dilantin levels in a patient with a history of seizures. PLAN: The patient is going to be placed in observation for treatment of hyponatremia and to assist in reestablishing therapeutic levels of Dilantin. She was given a loading dose of Cerebyx in the Emergency Room. We will follow her up with her normal dose of Dilantin 100 mg at 9 o'clock and continue 100 mg b.i.d. We will continue with normal saline and recheck a BMP in the afternoon at 1700 to reassess her hyponatremia. I will attempt to touch base with Dr. Mcintosh in [place], , as well as touch base with her primary care physician, Dr. Villela, to discuss her medication regimen regarding the valproic acid and Dilantin. At this point, we will hold the valproic acid as she is certainly intolerant to it and continue with Dilantin 200 mg ER daily. She will be on seizure precautions and telemetry with q.4h. neuro checks. We will anticipate 1 to 2 days of admission and hopefully be able to discharge tomorrow. If we are unable to contact Dr. Mcintosh, after talking with Dr. Villela, initial plan is to discharge once her sodium is back to baseline levels, continue Dilantin 200 mg ER daily and hold the valproic acid with intention of seeing Dr. Mcintosh within 1 or 2 days after discharge. We will monitor her blood pressure and treat as need. Until she can transition to outpatient management, we will continue to monitor and treat as needed. #[id number] [facility]
[2018-09-24] MEDS: ACETAMINOPHEN 325 MG TAB PO PRN ×2 (10:33→22:13)
[2018-09-24] MEDS: ONDANSETRON INJ 4 MG/2 ML VIAL IV PRN (10:33)
[2018-09-24] MEDS ORDERED: PHENYTOIN SODIUM CAP EXTENDED 100 MG CAP PO ONE (11:17)
[2018-09-24] MEDS: CARVEDILOL 12.5 MG TAB PO SCH ×2 (12:53→20:53)
[2018-09-24] MEDS: MAGNESIUM CHLORIDE 64 MG TAB PO SCH (12:53)
[2018-09-24] MEDS: LOSARTAN POTASSIUM 25 MG TAB PO SCH (12:53)
[2018-09-24] MEDS ORDERED: PHENYTOIN SODIUM CAP EXTENDED 100 MG CAP PO SCH (15:00)
[2018-09-24] MEDS: KCL 20 MEQ/NS 1,000 ML IVS PRN (17:29)
[2018-09-24] MEDS: POTASSIUM CHLORIDE 20 MEQ TAB PO SCH (20:53)
[2018-09-24] MEDS: PHENYTOIN SODIUM CAP EXTENDED 100 MG CAP PO SCH (20:53)
[2018-09-24] MEDS ORDERED: ATORVASTATIN 20 MG TAB PO SCH (21:00)
[2018-09-25] MEDS: ONDANSETRON INJ 4 MG/2 ML VIAL IV PRN ×2 (00:24→06:25)
[2018-09-25] MEDS: KCL 20 MEQ/NS 1,000 ML IVS PRN ×2 (01:09→09:34)
[2018-09-25] MEDS: ACETAMINOPHEN 325 MG TAB PO PRN (05:19)
[2018-09-25] MEDS: LOSARTAN POTASSIUM 25 MG TAB PO SCH ×2 (06:11→08:52)
[2018-09-25] MEDS: CARVEDILOL 12.5 MG TAB PO SCH ×2 (06:12→08:51)
[2018-09-25] MEDS ORDERED: ASPIRIN (CHEWABLE) 81 MG TAB PO SCH (09:00)
[2018-09-25] MEDS: POTASSIUM CHLORIDE 20 MEQ TAB PO SCH (09:16)
[2018-09-25] MEDS: PHENYTOIN SODIUM CAP EXTENDED 100 MG CAP PO SCH (09:16)
[2018-09-25] MEDS: MAGNESIUM CHLORIDE 64 MG TAB PO SCH (09:16)
[2018-09-25] MEDS ORDERED: SODIUM CHLORIDE 0.9% (FLUSH) 10 ML SYG IV ONE (10:35)
[2018-09-25 13:49] VITALS: BP 182/92; TEMP 98.5; O2SAT 97
--- NOTE | 2018-09-25 18:38 | DS ---
SUPERVISING PHYSICIAN: Thompson Layton M.D. ADMISSION DIAGNOSIS: 1. Nausea and vomiting secondary to valproic acid. 2. Acute on chronic hyponatremia secondary Seroquel and recent nausea and vomiting. 3. Hypertensive urgency. 4. History of seizures status post cerebrovascular accident in 2017. 5. Chronic obstructive pulmonary disease in a chronic smoker without any signs of exacerbation. 6. Hyperchromic/macrocytic anemia, likely due to medications and chronic illness, requiring further workup as an outpatient. 7. Subtherapeutic Dilantin levels in a patient with a history of seizures. DISCHARGE DIAGNOSIS: 1. Nausea and vomiting secondary to valproic acid, resolver after stopping medications. 2. Acute on chronic hyponatremia secondary Seroquel and exacerbated nausea and vomiting, resolved and improving base to baseline with fluids. 3. Hypertensive urgency requiring Clonidine, but showing to be stable. Will need followup as an outpatient for possible further medication changes. 4. History of seizures status post cerebrovascular accident in 2017 without any evidence of seizure activity during hospitalization. 5. Chronic obstructive pulmonary disease in a past chronic smoker without any signs of exacerbation. 6. Macrocytic anemia, likely due to medications and previous alcohol abuse and ongoing chronic illness requiring further monitoring and workup as an outpatient, but showing to be stable. 7. Subtherapeutic Dilantin level on admission with a history of seizures within the last 3 weeks, now showing to be therapeutic after Cerebyx loading dose. REASON FOR HOSPITALIZATION: Ms. Cantu is a 63-year-old female patient who presented to the Emergency Room early this morning due to some dizziness and vomiting that started on of the previous week. She has a history of seizures after a cerebrovascular accident in 2017 and has been on Dilantin 200 mg ER daily. Her least seizure activity was recorded 3 weeks previously. Her neurologist in the last several weeks had decreased her Dilantin to 100 mg daily resulting in new onset of seizures. She was seen in [place] and treated for seizures at which time she was started on Vimpat and her Dilantin was increased to 200 mg ER daily. Apparently she could not tolerate the Vimpat and was seen in followup by Dr. Villela on 09/17/18. The Vimpat was stopped and she was referred to neurologist, Dr. Mcintosh in [place]. Dr. Mcintosh started her this past on Depakote. Shortly after starting the Depakote, she started having severe nausea and vomiting which persisted over the weekend. She reports that within 2 hours of taking the Depakote, she became very nauseated followed by several episodes emesis. Her brought her to the Emergency Room this morning. On laboratory workup, the patient was found to be hyponatremic with sodium 126 mg/dl. Her toxicology screen showed subtherapeutic levels of Dilantin at 4.6 as well as valproic acid at 20.8. Given her past history of seizures and intolerance to Depakote, she was given 500 mg loading dose of Cerebyx. She was also started on normal saline to treat her hyponatremia. She was hypertensive on initial assessment in the Emergency Room with blood pressure 108/89 and treated with clonidine. She is going to be placed in observation for continuation of treatment for hyponatremia and close neurological monitoring and to allow for adjustment of her medications to include Depakote. She was placed in observation in stable condition. LABORATORY STUDIES: White count on admission was 5,300, hemoglobin 11.5, hematocrit 32.7 with MCV of 11.9, MCH of 34.6, platelet count 229,000. Differential showed to be without a left shift. Chemistries initially on admission showed electrolytes with sodium 126, after initiation of fluids and prior to discharge sodium had improved to 130. Potassium was 3.6 initially and was down to 3.3 by discharge but showing to be stable. BUN 6, creatinine 0.52 on discharge. Serum osmolality was initially 252 and with fluids prior to discharge was up to 259, calcium was normal at 8.8 at discharge. Liver functions were all showing within normal limits on admission. Toxicology screen showed a Dilantin level at 4.6 on admission, after loading dose of Cerebyx and continued Dilantin oral medications repeat level was at 10.8. Valproic acid level on admission was 20.8. HOSPITAL COURSE: Ms. Cantu was admitted from the E. . for nausea and vomiting and some dehydration secondary to Valproic acid. She was found to be with nontherapeutic level of Dilantin but was not having seizure activity, but given her low level was loaded on Cerebyx and was admitted at that point. On the floor she was monitored closely and had neurological statuses every 4 hours and was on seizure precaution. She had no recurrence of seizures while in the hospital. She did well with stopping the Valproic acid and returning her Dilantin level to 200 mg extended release daily. I did attempt to talk to her neurologist, Dr. Mcintosh, however he was not available and given the patient's past history on Dilantin and no longer having seizure activities during that timeframe, we have restarted her Dilantin at her normal levels and she has clinically done well. At this point she is clinically improved well enough to continue with outpatient management. PLAN: Ms. Cantu was discharged on 09/25/18 with instructions to followup with Dr. Mcintosh on , time to be determined, and then Dr. Villela next week, time to be determined. She was to resume her medications as instructed which included stopping the Valproic acid and continuing with Dilantin 200 mg extended release daily. She was told to return to the hospital should she have any worsening or concerning symptoms. Diet at discharge was diabetic diet. Activity increase as tolerated. Medications at discharge included: 1. Prescription for Zofran 4 mg orally every 6 hours as needed for nausea and vomiting, #6. All other medications below as listed include: 1. Lomotil 2.5 mg t.i.d. as needed. 2. Slow-Mag 64 mg daily. 3. Aspirin 81 mg daily. 4. Cozaar 50 mg daily. 5. K Tabs 20 mEq b.i.d. 6. Carvedilol 12.5 mg b.i.d. 7. Dilantin capsules extended release 100 mg b.i.d. Condition on discharge was stable and improving. DISPOSITION: The patient is discharged to the care of her . [facility][id number] [facility]
== END 2018-09-25 13:05 | disposition home or self-care (01) ==
LOC: ER 01:24 → MS 04:32
PROVIDERS: ADMIT Nurse Practitioner Family; ATTEND Nurse Practitioner Family
DX: E87.1 Hypo-osmolality and hyponatremia (principal); R11.2 Nausea with vomiting, unspecified; T42.6X5A Adverse effect of other antiepileptic and sedative-hypnotic drugs, initial encounter; I16.0 Hypertensive urgency; I10 Essential (primary) hypertension; G40.909 Epilepsy, unspecified, not intractable, without status epilepticus; I69.398 Other sequelae of cerebral infarction; J44.9 Chronic obstructive pulmonary disease, unspecified; D50.9 Iron deficiency anemia, unspecified; R79.1 Abnormal coagulation profile; I69.354 Hemiplegia and hemiparesis following cerebral infarction affecting left non-dominant side; E78.5 Hyperlipidemia, unspecified; Z87.891 Personal history of nicotine dependence; Z79.82 Long term (current) use of aspirin; Z79.899 Other long term (current) drug therapy; Z88.1 Allergy status to other antibiotic agents; Z91.013 Allergy to seafood
CPT/HCPCS: 96366 ×2; 96367; 96365; 96375; 96376; J2405 ×3; J7030 ×2; J3480 ×3; J7050; 80048 ×2; 80053; 36415 ×3; 85025; 80185 ×2; 80164; 94760 ×3; 99285; G0378

== ENCOUNTER → 2019-02-13 | Outpatient (CLI) | payer OTHER | LOC: GMAE 17:20 | PROVIDERS: ATTEND Family Medicine | DX: R56.9 Unspecified convulsions (principal) ==

== ENCOUNTER → 2019-04-29 | Outpatient (CLI) | payer OTHER | LOC: GMAE 16:44 | PROVIDERS: ATTEND Family Medicine | DX: I10 Essential (primary) hypertension (principal) ==

== ENCOUNTER → 2019-06-21 | Outpatient (CLI) | payer OTHER ==
--- NOTE | 2019-06-21 17:10 | CT ---
Procedure: CT LUNG SCREENING Exam Date: 06/21/2019. Ordering Provider: Trace Payne Clinical Indication: Personal history of tobacco use smoking cessation 2 years. 40 pack years. This patient meets eligibility criteria for low-dose CT lung cancer screening. Comparison: CT scan of the chest without contrast second of November 2017. Technique: Using a multislice scanner, sequential helical axial imaging was obtained in the thorax, 2.5 mm thickness, 2.5 mm separation, from the level of the thoracic inlet through the lung bases without IV contrast. A low dose protocol was utilized for BMI less than 30: BMI: 18.5. CTDI: 1.76 mGy. 120. kVp. 45 mA. DLP 53.64 mGy-cm. 2D sagittal and coronal reconstructed images, 6.0 mm thickness, were obtained. This exam was performed according to our departmental dose optimization program which includes use of automated exposure control, adjustment of the mA and/or kV according to patient size and/or use of iterative reconstruction technique. Nodule measurements under 10 mm are given as mean value of 3 axes diameters. Technically difficult study due to patient motion from pain and respiratory motion. FINDINGS: Lungs and large airways: Numerous bilateral parenchymal blebs in a centrilobular distribution. 3 mm subpleural nodule solid lateral right upper lobe on axial image 09/05 posterior dependent atelectasis posterior recess of the right lower lobe. Elevation of the left hemidiaphragm impressing upon the retrocardiac left lower lobe with atelectasis and diminished volume. Minimal thickening of the bilateral major fissures. No abnormal nodules and no focal masses. No focal infiltrates. Pleura and space: Bilateral apical pleural thickening. Mediastinum and chris: evaluation limited by low dose technique and lack of IV contrast. Unremarkable. Heart and great vessels: Atherosclerotic coronary artery calcifications and calcifications in the aortic arch, proximal brachiocephalic vessels and descending thoracic aorta. Heart is enlarged. Chest wall, lower neck, axillae: Evaluation also limited by same factors as described above, and upper extremities not elevated. Bilateral small axillary lymph nodes. Upper abdomen: Evaluation limited by low-dose technique, and upper extremities not elevated. No free air or free fluid in the included peritoneal space. Normal density of the spleen. Atherosclerotic calcifications of the abdominal aorta and left kidney.. Osseous structures: Evaluation limited by low dose MIP technique. Spondylosis of the thoracic spine. Arthrosis in the bilateral glenohumeral joints. IMPRESSION: Study limited by patient motion from pain and breathing as well as upper extremities at the patient's side, not elevated. 3 mm solid subpleural nodule in the right upper lobe. Atelectasis left lower lobe from chronically elevated diaphragm. No abnormal nodules and no mass. No focal infiltrates. Apical pleural thickening.. [facility] Best Practice Recommendations: please see below for Lung RADS category and FOLLOW-UP.* *Lung RADS category CATEGORY 2- Nodules with a very low likelihood (less than 1%) of becoming a clinically active cancer due to size or lack of growth. Nodules: Perifissural nodule(s) < 10 mm. (526mm3). Solid or part solid nodule(s) less than 6mm (113.1 mm3), new solid nodule less than 4mm (33.5 mm3). Ground glass nodule(s) less than 30mm (27244.2 mm3) or unchanged or slow growing ground glass nodule 30mm or greater. Cat 3 or 4 nodule unchanged for 3 or more months. FOLLOW-UP: Continue annual screening with a Low Dose Chest CT in 12 months for re-evaluation. Electronically signed by: Mir Raman MD 06/21/2019 5:09 PM [facility] [employer] [facility]
== END ==
LOC: CT 15:00
PROVIDERS: ATTEND Family Medicine
DX: Z87.891 Personal history of nicotine dependence (principal); R91.1 Solitary pulmonary nodule; J98.11 Atelectasis

== ENCOUNTER → 2019-08-07 | Outpatient (CLI) | payer MEDICARE, OTHER | LOC: GMAE 17:05 | PROVIDERS: ATTEND Family Medicine | DX: G40.909 Epilepsy, unspecified, not intractable, without status epilepticus (principal) ==

== ENCOUNTER → 2020-07-20 | Outpatient (CLI) | payer MEDICARE, OTHER | LOC: YCHH 15:15 | PROVIDERS: ATTEND Family Medicine | DX: I69.352 Hemiplegia and hemiparesis following cerebral infarction affecting left dominant side (principal); G40.909 Epilepsy, unspecified, not intractable, without status epilepticus; I10 Essential (primary) hypertension; J44.9 Chronic obstructive pulmonary disease, unspecified; D64.9 Anemia, unspecified; E03.9 Hypothyroidism, unspecified; R89.2 Abnormal level of other drugs, medicaments and biological substances in specimens from other organs, systems and tissues; E78.5 Hyperlipidemia, unspecified; R79.89 Other specified abnormal findings of blood chemistry ==